=== PATIENT | male | born 1965 | race Caucasian/White ===

== ENCOUNTER 2023-10-12 07:54 | Inpatient (IN) ==
--- NOTE | 2023-10-12 08:07 | Emergency Department Note ---
Impression & Plan Elevated troponin, Chest pain, Acute epigastric pain, Gastroenteritis, History of coronary artery disease ED Provider Note NAME: ENID QUEZADA AGE: 58 SEX: M : 1965 ARRIVES VIA: Ambulance INFORMANT: Patient ED PROVIDER(S): Jaquan Collins MD CHIEF COMPLAINT: chest pain, referred. PLAN: Disposition: Admit MEDICAL DECISION MAKING: The patient is a 58-year-old gentleman, chcf inmate at [facility] with a pmhx of CAD with prior PCI 6 months ago per his report who presents who presents to the emergency department via EMS from his ch[facility] facility referred for acute onset chest pain that began this morning where he received nitroglycerin and aspirin by the [facility] and he reported improvement but then return of the pain which he describes as a burning in his left chest but also feels pain in his right arm. Patient symptoms occur in the setting of having a week of watery brown diarrhea and fevers with vomiting of nausea and vomiting this morning. He denies cough or congestion. On evaluation the patient is no distress, afebrile blood pressure 140s/90s and vital signs otherwise stable. Appears clinically dry. He exhibits mild epigastric discomfort without discrete tenderness. EKG without overt acute ischemia. CXR negative for acute cardiopulmonary process per my personal preliminary review/interpretation. WBC and platelets within normal limits. H/H 12.6/30.4 without recent for comparison. Chemistry without metabolic acidosis. BUN/creatinine is 40, consistent with patient's clinically dry appearance. Electrolytes LFTs without significant abnormality. Initial high-sensitivity troponin 15.5, within normal limits with delta 4-hour high-sensitivity troponin increased to 35. Lipase is not elevated. Respiratory viral panel/[employer] was negative. Stool studies were eventually obtained and were negative. CTA of the chest and CTA of the on pelvis was performed. No acute aortic pathology is identified. Extensive peripheral arterial disease is described with aortoiliac vascular sclerotic plaque with severe multifocal stenosis within bilateral common iliac arteries. Additionally, severe stenosis within the left external iliac and common femoral arteries with a diminutive left superficial femoral artery. Mild dilation of the right common iliac artery is also seen. Likely left renal cyst is also noted. Given the patient's troponin elevation in the setting of history of CAD patient is planned for admission for further evaluation. Given contacts of patient's symptoms gastroenteritis suspect troponin elevation less likely to reflect ACS at this time. Sonya Tirado PAC, with Dr. Davie Hassan [facility] who will evaluate the patient for admission. Further management per admitting team. Triage Nursing notes reviewed and agree them. Prior/external medical records reviewed Vital Signs: reviewed Differential diagnosis: Cardiac ischemia, aortic dissection, pulmonary embolism, pneumothorax, pneumonia, pericarditis, myocarditis, esophageal rupture, GERD, cholecystitis, pancreatitis, musculoskeletal, as well as other pathologies. ER treatment provided: See below. Diagnostics interpreted by me: ECG: Normal sinus rhythm, 64 bpm, no ectopy, no overt ST ovation or depression, QTc 418, QRS 90. Cardiac Monitoring: An order for continuous cardiac monitoring was placed and demonstrated Normal sinus rhythm, 64 bpm, no ectopy. Laboratory studies: See below Imaging studies: See below Consultation(s): Sonya Tirado PAC, with Dr. Davie Hassan [facility] who will evaluate the patient for admission. HPI: The patient is a 58-year-old gentleman, chcf inmate at [facility] with a pmhx of CAD with prior PCI 6 months ago per his report who presents who presents to the emergency department via EMS from his chcf facility referred for acute onset chest pain that began this morning where he received nitroglycerin and aspirin by the [facility] and he reported improvement but then return of the pain which he describes as a burning in his left chest but also feels pain in his right arm. Patient symptoms occur in the setting of having a week of watery brown diarrhea and fevers with vomiting of nausea and vomiting this morning. He denies cough or congestion. ROS: See above HPI for pertinent positives & negatives. A total of 10 systems reviewed and were otherwise negative. VITALS:See Below PHYSICAL EXAMINATION: GENERAL: Awake, alert, in no distress HENT: Normocephalic, atraumatic. Oropharynx with dry mucous membranes and otherwise unremarkable. EYES: Normal conjunctiva. Sclera non-icteric. NECK: Supple. No nuchal rigidity. FROM. No JVD. RESPIRATORY: Clear to auscultation. CARDIAC: Regular rate, normal rhythm. Extremities warm and well perfused. Pulses equal. ABDOMEN: Soft, non-distended. Mild epigastric discomfort without discrete tenderness to palpation. No rebound or guarding. No masses. MUSCULOSKELETAL: Chest examination reveals no tenderness. The back is symmetrical on inspection without obvious abnormality. There is no CVA tenderness to palpation. No joint edema. LOWER EXTREMITIES: Calves are equal size bilaterally and non-tender. No edema. No discoloration. NEURO: Normal sensorium. No sensory or motor deficits noted. SKIN: No rash or jaundice noted. Jaquan Collins MD Past Med/Surg History Problem List (Updated 10/13/23 @ 01:35 by Jaquan Collins MD) History of coronary artery disease (Acute) Gastroenteritis (Acute) Acute epigastric pain (Acute) Chest pain (Acute) Elevated troponin (Acute) Diarrhea Chest pain Medical History C. difficile diarrhea Surgical History History of left below knee amputation H/O heart artery stent Social History Smoking Status: Former smoker Second Hand Exposure: No; Do You Dip or Chew Tobacco: No; Tobacco Cessation Education Requested by Patient: No Hx Alcohol Use: No Hx Substance Use: No Preferred Language: Georgian Communication Ability: Effective Sleeping Room Cleaner Required: No Beliefs That Will Affect Care: None Current Living Situation: Other Current Living Situation Comment: [facility] Other Information That Helps Us Care for You: No Feels Safe at Home: Yes Safety Concerns: Feels Safe At This Time Assistive Devices: Denture - Upper and Prosthesis Allergies Allergies Allergy/AdvReac Type Severity Reaction Status Date / Time animal dander Allergy Unknown Unknown Unverified 10/12/23 12:48 codeine Allergy Unknown Unknown Unverified 10/12/23 12:48 Home Meds Home Medications Medication Instructions Recorded Confirmed albuterol sulfate 90 mcg/actuation 2 puff inhalation QID PRN 10/12/23 10/12/23 aerosol inhaler SOB/WHEEZING aspirin 81 mg tablet,delayed 81 mg PO DAILY 10/12/23 10/12/23 release atorvastatin 80 mg tablet 80 mg PO HS 10/12/23 10/12/23 buprenorphine 8 mg-naloxone 2 mg 1 tab sublingual UD 10/12/23 10/12/23 sublingual tablet cholecalciferol (vitamin D3) 25 50 mcg PO DAILY 10/12/23 10/12/23 mcg (1,000 unit) tablet (Vitamin D3) diclofenac potassium 50 mg tablet 50 mg PO BID PRN Unknown 10/12/23 10/12/23 duloxetine 30 mg capsule,delayed 30 mg PO HS 10/12/23 10/12/23 release duloxetine 60 mg capsule,delayed 60 mg PO HS 10/12/23 10/12/23 release isosorbide mononitrate 30 mg 30 mg PO DAILY 10/12/23 10/12/23 tablet,extended release 24 hr lamotrigine 25 mg tablet 75 mg PO BID 10/12/23 10/12/23 lisinopril 20 mg tablet 20 mg PO DAILY 10/12/23 10/12/23 loperamide 2 mg tablet (Diamode) 4 mg PO DAILY 10/12/23 10/12/23 metoprolol tartrate 25 mg tablet 25 mg PO BID 10/12/23 10/12/23 mirtazapine 30 mg tablet 30 mg PO HS 10/12/23 10/12/23 torsemide 20 mg tablet 20 mg PO BID 10/12/23 10/12/23 Results & Data (ED) Vital Signs Vital Signs - 24 hr 10/12/23 08:05 10/12/23 08:05 10/12/23 08:11 Temperature 36.9 C Temperature Source Oral Pulse Rate 68 63 Pulse Rate [Apical] Respiratory Rate 16 Respiratory Depth Normal Blood Pressure 146/95 H Blood Pressure Mean 112 Pulse Oximetry 96 96 Oxygen Delivery Method Room Air Room Air Oxygen Flow Rate 0 Sepsis Recent Fever Within 48 Hours Yes Sepsis New/Unexplained Change in Mental Status No Sepsis Action Taken by Nursing No Action Required 10/12/23 10:00 10/12/23 11:27 10/12/23 13:00 Temperature Temperature Source Pulse Rate 63 61 Pulse Rate [Apical] 59 L Respiratory Rate 16 20 19 Respiratory Depth Blood Pressure 122/74 116/75 Blood Pressure Mean 90 92 Pulse Oximetry 95 97 95 Oxygen Delivery Method Room Air Room Air Room Air Oxygen Flow Rate Sepsis Recent Fever Within 48 Hours Sepsis New/Unexplained Change in Mental Status Sepsis Action Taken by Nursing 10/12/23 13:02 Temperature Temperature Source Pulse Rate 63 Pulse Rate [Apical] Respiratory Rate Respiratory Depth Blood Pressure Blood Pressure Mean Pulse Oximetry Oxygen Delivery Method Oxygen Flow Rate Sepsis Recent Fever Within 48 Hours Sepsis New/Unexplained Change in Mental Status Sepsis Action Taken by Nursing Laboratory Data Attestation: I reviewed the patient's lab results. 10/12/23 08:00 10/12/23 08:00 Lab Results 10/12/23 10/12/23 Range/Units 08:00 12:24 WBC 6.52 (4.8-10.8) K/ul RBC 4.29 L (4.70-6.10) M/uL Hgb 12.6 L (14.0-18.0) g/dl Hct 38.4 L (42.0-52.0) % MCV 89.5 (80.0-100.0) fL MCH 29.4 (25.0-34.0) pg MCHC 32.8 (32.0-36.0) g/dL RDW Std Deviation 43.0 (36.4-46.3) fL RDW Coeff of Deandre 13.2 (11.5-14.5) % Plt Count 224 (130-400) K/uL MPV 11.1 (9.4-12.4) fL Immature Gran % (Auto) 0.6 % Neut % (Auto) 55.3 % Lymph % (Auto) 35.6 % Dewitt % (Auto) 5.2 % Eos % (Auto) 2.8 % Baso % (Auto) 0.5 % Neut # (Auto) 3.61 (1.40-6.50) K/uL Lymph # (Auto) 2.32 (1.20-3.40) K/uL Dewitt # (Auto) 0.34 (0.11-0.59) K/uL Eos # (Auto) 0.18 (0.00-0.50) K/uL Baso # (Auto) 0.03 (0.00-0.20) K/uL Immature Gran # (Auto) 0.04 (0.01-0.20) K/uL Sodium 140 (136-145) mmol/L Potassium 5.5 H (3.5-5.1) mmol/L Chloride 113 H (98-107) mmol/L Carbon Dioxide 22 (21-32) mmol/L Anion Gap 5 (3-11) BUN 51 H (6-23) mg/dl Creatinine 1.25 (0.6-1.4) mg/dl Est Cr Clr Drug Dosing 68.9 ml/min Est GFR ( Amer) 72.6 ml/min Est GFR (Non-Af Amer) 62.6 ml/min BUN/Creatinine Ratio 40.8 H (10-20) Glucose 108 H (70-99(Fasting)) mg/dl Calcium 9.3 (8.6-10.3) mg/dl Magnesium 2.1 (1.7-2.4) mg/dl Total Bilirubin 0.2 (0.2-1.0) mg/dl AST 14 (13-39) U/L ALT 13 (7-52) U/L Alkaline Phosphatase 99 (34-104) U/L Troponin I High Sens 15.5 35.1 H D (0-20) pg/ml Total Protein 7.9 (6.0-8.3) gm/dl Albumin 4.3 (3.4-5.0) gm/dl Globulin 3.6 (2.5-4.0) gm/dl Albumin/Globulin Ratio 1.2 (0.9-2) Lipase 10 L (11-82) U/L Administered Medications Atorvastatin Calcium (Atorvastatin 40 Mg Tab) 80 mg PO HS LATHA Stop: 11/11/23 20:59 Last Admin: 10/12/23 22:08 Dose: 80 mg Documented By: ADAM Valles Syrup (Valles Syrup 5 Ml Udp) 5 ml PO Q6 LATHA Stop: 10/22/23 17:59 Last Admin: 10/12/23 23:10 Dose: 5 ml Documented By: Admin: 10/12/23 17:56 Dose: 5 ml Documented By: ISIDRO Duloxetine HCl (Duloxetine Hcl 30 Mg Cap) 30 mg PO HS LATHA Stop: 11/11/23 20:59 Last Admin: 10/12/23 22:09 Dose: 30 mg Documented By: ADAM Duloxetine HCl (Duloxetine Hcl 60 Mg Cap) 60 mg PO HS LATHA Stop: 11/11/23 20:59 Last Admin: 10/12/23 22:09 Dose: 60 mg Documented By: ADAM Pantoprazole Sodium 40 mg/ (Syringe) 10 mls @ 5 mls/min IV BID LATHA Stop: 11/11/23 15:19 Last Admin: 10/12/23 22:09 Dose: 5 mls/min Documented By: Admin: 10/12/23 16:26 Dose: 5 mls/min Documented By: ISIDRO Isosorbide Mononitrate (Isosorbide Dewitt Extended Rel 30 Mg Tabcr) 30 mg PO DAILY [facility] Stop: 11/11/23 14:29 Last Admin: 10/12/23 16:26 Dose: 30 mg Documented By: ISIDRO Lamotrigine (Lamotrigine 25 Mg Tab) 75 mg PO BID [facility]; Protocol Stop: 11/11/23 20:59 Last Admin: 10/12/23 22:07 Dose: 75 mg Documented By: ADAM Lisinopril (Lisinopril 20 Mg Tab) 20 mg PO DAILY [facility] Stop: 11/11/23 14:29 Last Admin: 10/12/23 16:26 Dose: 20 mg Documented By: ISIDRO Metoprolol Tartrate (Metoprolol Tartrate 25 Mg Tab) 25 mg PO BID [facility] Stop: 11/11/23 14:29 Last Admin: 10/12/23 22:08 Dose: Not Given Documented By: Admin: 10/12/23 16:26 Dose: 25 mg Documented By: ISIDRO Mirtazapine (Mirtazapine Tab 15 Mg Tab) 30 mg PO HS [facility] Stop: 11/11/23 20:59 Last Admin: 10/12/23 22:06 Dose: 30 mg Documented By: ADAM Nitroglycerin (Nitroglycerin 2% Ointment 30gm Tube) 0.5 inch EXT Q6 [facility] Stop: 11/11/23 14:14 Last Admin: 10/12/23 23:11 Dose: Not Given Documented By: Admin: 10/12/23 17:56 Dose: Not Given Documented By: Admin: 10/12/23 14:39 Dose: 0.5 inch Documented By: ISIDRO Vancomycin HCl (Vancomycin Hcl 125 Mg/2.5ml Soln) 125 mg PO Q6 [facility] Stop: 10/22/23 17:59 Last Admin: 10/12/23 23:10 Dose: 125 mg Documented By: Admin: 10/12/23 17:56 Dose: 125 mg Documented By: ISIDRO Discontinued Medications Al Hydrox/Mg Hydrox/Simethicone (Aluminum/Magnesium Susp 30 Ml Udc) 30 ml PO NOW STA Stop: 10/12/23 09:46 Last Admin: 10/12/23 10:13 Dose: 30 ml Documented By: BRIDGETTE Buprenorphine/Naloxone (Buprenorphine/Naloxone 8/2 Mg Tab) 1 tab SL NOW STA Stop: 10/12/23 14:33 Last Admin: 10/12/23 16:26 Dose: 1 tab Documented By: ISIDRO Sodium Chloride (Nss) 500 mls @ 999 mls/hr IV .Q31M ONE Stop: 10/12/23 08:35 Last Infusion: 10/12/23 11:24 Dose: Infused Documented By: Admin: 10/12/23 08:11 Dose: 999 mls/hr Documented By: BRIDGETTE Acetaminophen (Ofirmev) 1,000 mg in 100 mls @ 400 mls/hr IV NOW STA Stop: 10/12/23 08:45 Last Infusion: 10/12/23 11:24 Dose: Infused Documented By: Admin: 10/12/23 08:52 Dose: 400 mls/hr Documented By: BRIDGETTE Famotidine (Pepcid 20mg Iv Push) 20 mg in 5 mls @ 2.5 mls/min IV NOW STA Stop: 10/12/23 08:32 Last Admin: 10/12/23 08:52 Dose: 2.5 mls/min Documented By: BRIDGETTE Sodium Chloride (Nss) 1,000 mls @ 999 mls/hr IV .Q1H1M LATHA Stop: 10/12/23 14:57 Last Infusion: 10/12/23 15:49 Dose: Infused Documented By: Admin: 10/12/23 14:39 Dose: 999 mls/hr Documented By: ISIDRO Sodium Chloride (Nss) 1,000 mls @ 125 mls/hr IV .Q8H LATHA Stop: 10/12/23 23:29 Last Infusion: 10/12/23 20:20 Dose: Infused Documented By: Admin: 10/12/23 16:27 Dose: 125 mls/hr Documented By: ISIDRO Sodium Chloride (Nss) 500 mls @ 999 mls/hr IV .Q31M ONE Stop: 10/12/23 20:17 Last Infusion: 10/12/23 20:19 Dose: Infused Documented By: Admin: 10/12/23 19:53 Dose: 999 mls/hr Documented By: MELANIE Ioversol (Optiray 320 100ml) 120 ml IV ONCE ONE Stop: 10/12/23 09:06 Last Admin: 10/12/23 08:57 Dose: 120 ml Documented By: LEWIS Ondansetron HCl (Ondansetron Inj 2 Mg/Ml 2 Ml Vial) 4 mg IV NOW STA Stop: 10/12/23 08:32 Last Admin: 10/12/23 08:52 Dose: 4 mg Documented By: KV Imaging Data Radiologist's Impression: Chest X-Ray 10/12/23 08:02 XR chest 1V portable CLINICAL HISTORY: Chest pain, nonspecific COMPARISON STUDY: No previous studies for comparison. FINDINGS: Lung volumes are mildly diminished. There is no pneumothorax or pleural effusion. There is no consolidation. Pulmonary vascular congestion without overt pulmonary edema. Cardiomediastinal silhouette is unremarkable. IMPRESSION: Pulmonary vascular congestion without overt pulmonary edema. ACT 112: Negative or not required by law. Electronically signed by: Goyo Fontaine M.D. 10/12/2023 9:00 AM Abdomen/Pelvis CTA 10/12/23 08:31 CT angio abdomen pelvis w con CLINICAL HISTORY: Chest and abdominal pain. Hypertension. COMPARISON STUDY: No previous studies for comparison. TECHNIQUE: Helical axial images of the abdomen and pelvis were obtained during arterial phase following intravenous injection of 120 cc Optiray 320 IV. Sagittal and coronal reconstructions were viewed as well as maximal intensity projections on an independent 3-D workstation. Automated exposure control was utilized for the study. A dose lowering technique was utilized adhering to the principles of ALARA. FINDINGS: Please note that the chest CT will be reported separately. Emphysema is incidentally noted within the lower lungs. No pneumatosis, free air or portal venous gas is present. The caliber of the abdominal aorta is normal. There is extensive aortoiliac atherosclerotic plaque. The celiac axis, superior mesenteric artery, inferior mesenteric artery and renal arteries are patent. There is no dissection within the abdomen or pelvis. Severe multifocal stenoses within the right common iliac artery are present. There is focal mild dilatation of the right common iliac artery, measuring 1.4 cm. There is mild stenosis within the right external iliac artery. Severe multifocal stenoses within the left common iliac artery are due to extensive calcified and noncalcified plaque. Severe multifocal stenoses within the left external iliac and common femoral arteries are noted. The proximal left superficial femoral artery is diminutive. Liver morphology is normal. There is no biliary or pancreatic ductal dilatation. A 9 mm hypervascular segment 7 hepatic lesion is probably benign. Spleen, adrenal glands and pancreas are unremarkable. The appendix is normal. There is no evidence for a bowel obstruction. Colonic diverticulosis is present without evidence for acute diverticulitis. The bladder is distended. There is no lymphadenopathy. There are no fluid collections. Left femoral internal fixation is noted. Chronic deformity left iliac bone. A 8 mm hypodense lesion arising from the lower pole of the left kidney on image 145 of 389 measures just above water attenuation. IMPRESSION: 1. No abdominal aortic dissection. Extensive aortoiliac atherosclerotic plaque. Severe multifocal stenoses within the bilateral common iliac arteries. In addition, severe stenoses within the left external iliac and common femoral arteries with a diminutive left superficial femoral artery. Mild dilatation of the right common iliac artery. 2. No acute process within the abdomen or pelvis. 3. No bowel obstruction. No bowel wall thickening. Normal appendix. 4. 8 mm left lower pole renal lesion. This probably reflects a cyst however measures above water attenuation. Nonemergent renal ultrasound is recommended to exclude the possibility of a small solid renal lesion. ACT 112: Positive. There are findings on this exam that require communication between the performing entity and the patient following Patient Test Result Information Act ([place] Act 112) guidelines. Electronically signed by: Goyo Fontaine M.D. 10/12/2023 9:31 AM Chest CTA 10/12/23 08:31 CT angio chest dissec wo/w con CLINICAL HISTORY: cp/abd pain, HTN, RUE numbness TECHNIQUE: Multidetector row helical CT of the chest was performed before and after injection of IV contrast. Coronal, sagittal, and MIP reformations were obtained. Automated dose lowering techniques and/or adjustment according to patient size were utilized for this exam. Comparison: Comparison is made to chest radiograph 10/12/2023 FINDINGS: Lungs and pleura: Normal. Heart and pericardium: Aortic valvular calcifications are seen. Vessels: No aortic dissection or intramural hematoma is seen. Moderate atherosclerotic disease is seen in the aorta and coronary arteries. Mediastinum and ekaterina: Unremarkable. Chest wall and lower neck: Unremarkable. Abdomen: Unremarkable. Bones: Degenerative changes in the thoracic spine. IMPRESSION: No acute abnormality and in particular no evidence of acute aortic injury. ACT 112: Negative or not required by law. Electronically signed by: Alexander Valles M.D. 10/12/2023 10:01 AM Discharge Plan Visit Data Chief Complaint: Chest Pain ED Provider: Jaquan Collins Discharge Problem: Elevated troponin, Chest pain, Acute epigastric pain, Gastroenteritis, History of coronary artery disease Patient Disposition: Admitted As Inpatient Discharge Instructions Interventions: ED Discharge Assessment Last Done: 10/12/23 19:04 Discharge Problem: Chest pain Qualifiers: Chest pain type: unspecified Qualified Code(s): R07.9 - Chest pain, unspecified
[2023-10-12] MEDS: SODIUM CHLORIDE 0.9% 500 ML IV ONE ×2 (08:11→19:53)
[2023-10-12 08:24] LABS: Basophils # (auto) 0.03 K/uL (0.00-0.20); Basophils % (auto) 0.5 %; Eosinophils # (auto) 0.18 K/uL (0.00-0.50); Eosinophils % (auto) 2.8 %; Hematocrit (blood only) 38.4 % (42.0-52.0); Hemoglobin 12.6 g/dl (14.0-18.0); Immature Granulocytes # (auto) 0.04 K/uL (0.01-0.20); Immature Granulocytes % (auto) 0.6 %; Lymphocytes # (auto) 2.32 K/uL (1.20-3.40); Lymphocytes % (auto) 35.6 %; Mean Corpuscular Hemoglobin 29.4 pg (25.0-34.0); Mean Corpuscular Hgb Conc 32.8 g/dL (32.0-36.0); Mean Corpuscular Volume 89.5 fL (80.0-100.0); Mean Platelet Volume 11.1 fL (9.4-12.4); Monocytes # (auto) 0.34 K/uL (0.11-0.59); Monocytes % (auto) 5.2 %; Neutrophils # (auto) 3.61 K/uL (1.40-6.50); Neutrophils % (auto) 55.3 %; Platelet Count 224 K/uL (130-400); RDW Coefficient of Variation 13.2 % (11.5-14.5); Red Blood Count 4.29 M/uL (4.70-6.10); White Blood Count 6.52 K/ul (4.8-10.8)
[2023-10-12 08:44] LABS: Albumin Globulin Ratio 1.2 (0.9-2); Albumin Level 4.3 gm/dl (3.4-5.0); BUN Creatinine Ratio 40.8 (10-20); Bilirubin,Total 0.2 mg/dl (0.2-1.0); Calcium 9.3 mg/dl (8.6-10.3); Creatinine Clr Calc Pharmacy 68.9 ml/min; Est GFR (African American) 72.6 ml/min; Est GFR (Non-African American) 62.6 ml/min; Globulin 3.6 gm/dl (2.5-4.0); Magnesium 2.1 mg/dl (1.7-2.4); Potassium 5.5 mmol/L (3.5-5.1); Total Protein 7.9 gm/dl (6.0-8.3)
[2023-10-12 08:49] LABS: Troponin I High Sensitivity 15.5 pg/ml (0-20)
[2023-10-12] MEDS: ACETAMINOPHEN 1,000 MG/100 ML VIAL IV STA (08:52)
[2023-10-12] MEDS: ONDANSETRON INJ 2 MG/ML 2 ML VIAL IV STA (08:52)
[2023-10-12] MEDS: FAMOTIDINE 20MG IV PUSH 20 MG/5 ML SYR IV STA (08:52)
[2023-10-12] MEDS: OPTIRAY 320 100ml IV ONE (08:57)
--- NOTE | 2023-10-12 09:01 | XRay Report ---
XR chest 1V portable CLINICAL HISTORY: Chest pain, nonspecific COMPARISON STUDY: No previous studies for comparison. FINDINGS: Lung volumes are mildly diminished. There is no pneumothorax or pleural effusion. There is no consolidation. Pulmonary vascular congestion without overt pulmonary edema. Cardiomediastinal silh ouette is unremarkable. IMPRESSION: Pulmonary vascular congestion without overt pulmonary edema. ACT 112: Negative or not required by law. Electronically signed by: Goyo Fontaine M.D. 10/12/2023 9:00 AM
--- NOTE | 2023-10-12 09:33 | CT Scan Report ---
CT angio abdomen pelvis w con CLINICAL HISTORY: Chest and abdominal pain. Hypertension. COMPARISON STUDY: No previous studies for comparison. TECHNIQUE: Helical axial images of the abdomen and pelvis were obtained during arterial phase followi ng intravenous injection of 120 cc Optiray 320 IV. Sagittal and coronal reconstructions were viewed a s well as maximal intensity projections on an independent 3-D workstation. Automated exposure control was utilized for the study. A dose lowering technique was utilized adhering to the principles of AL MONA. FINDINGS: Please note that the chest CT will be reported separately. Emphysema is incidentally noted within the lower lungs. No pneumatosis, free air or portal venous gas is present. The caliber of the abdominal aorta is normal. There is extensive aortoiliac atherosclerotic plaque. The celiac axis, sup erior mesenteric artery, inferior mesenteric artery and renal arteries are patent. There is no dissec tion within the abdomen or pelvis. Severe multifocal stenoses within the right common iliac artery ar e present. There is focal mild dilatation of the right common iliac artery, measuring 1.4 cm. There i s mild stenosis within the right external iliac artery. Severe multifocal stenoses within the left co mmon iliac artery are due to extensive calcified and noncalcified plaque. Severe multifocal stenoses within the left external iliac and common femoral arteries are noted. The proximal left superficial f emoral artery is diminutive. Liver morphology is normal. There is no biliary or pancreatic ductal dilatation. A 9 mm hypervascular segment 7 hepatic lesion is probably benign. Spleen, adrenal glands and pancreas are unremarkable. T he appendix is normal. There is no evidence for a bowel obstruction. Colonic diverticulosis is presen t without evidence for acute diverticulitis. The bladder is distended. There is no lymphadenopathy. T here are no fluid collections. Left femoral internal fixation is noted. Chronic deformity left iliac bone. A 8 mm hypodense lesion arising from the lower pole of the left kidney on image 145 of 389 elayne ures just above water attenuation. IMPRESSION: 1. No abdominal aortic dissection. Extensive aortoiliac atherosclerotic plaque. Severe multifocal marques noses within the bilateral common iliac arteries. In addition, severe stenoses within the left pharmacy aide al iliac and common femoral arteries with a diminutive left superficial femoral artery. Mild dilatati on of the right common iliac artery. 2. No acute process within the abdomen or pelvis. 3. No bowel obstruction. No bowel wall thickening. Normal appendix. 4. 8 mm left lower pole renal lesion. This probably reflects a cyst however measures above water atte nuation. Nonemergent renal ultrasound is recommended to exclude the possibility of a small solid sirena l lesion. ACT 112: Positive. There are findings on this exam that require communication between the performing entity and the patient following Patient Test Result Information Act ([place] Act 112) guidelines. Electronically signed by: Goyo Fontaine M.D. 10/12/2023 9:31 AM
--- NOTE | 2023-10-12 10:03 | CT Scan Report ---
CT angio chest dissec wo/w con CLINICAL HISTORY: cp/abd pain, HTN, RUE numbness TECHNIQUE: Multidetector row helical CT of the chest was performed before and after injection of IV c ontrast. Coronal, sagittal, and MIP reformations were obtained. Automated dose lowering techniques an d/or adjustment according to patient size were utilized for this exam. Comparison: Comparison is made to chest radiograph 10/12/2023 FINDINGS: Lungs and pleura: Normal. Heart and pericardium: Aortic valvular calcifications are seen. Vessels: No aortic dissection or intramural hematoma is seen. Moderate atherosclerotic disease is see n in the aorta and coronary arteries. Mediastinum and ekaterina: Unremarkable. Chest wall and lower neck: Unremarkable. Abdomen: Unremarkable. Bones: Degenerative changes in the thoracic spine. IMPRESSION: No acute abnormality and in particular no evidence of acute aortic injury. ACT 112: Negative or not required by law. Electronically signed by: Alexander Valles M.D. 10/12/2023 10:01 AM
[2023-10-12] MEDS: ALUMINUM/MAGNESIUM SUSP 30 ML UDC PO STA (10:13)
[2023-10-12 11:08] LABS: Adenovirus PCR Not Detected (NotDetected); Bordetella parapertussis PCR Not Detected (NotDetected); Bordetella pertussis PCR Not Detected (NotDetected); Chlamydia pneumoniae PCR Not Detected (NotDetected); Coronavirus 229E PCR Not Detected (NotDetected); Coronavirus CoV-2 (COVID19)PCR Not Detected (NotDetected); Coronavirus HKU1 PCR Not Detected (NotDetected); Coronavirus NL63 PCR Not Detected (NotDetected); Coronavirus OC43PCR Not Detected (NotDetected); Human Metapneumovirus PCR Not Detected (NotDetected); Influenza A PCR Not Detected (NotDetected); Influenza B PCR Not Detected (NotDetected); Mycoplasma pneumoniae PCR Not Detected (NotDetected); Parainfluenza Virus 1 PCR Not Detected (NotDetected); Parainfluenza Virus 2 PCR Not Detected (NotDetected); Parainfluenza Virus 3 PCR Not Detected (NotDetected); Parainfluenza Virus 4 PCR Not Detected (NotDetected); Respiratory Syncytial VirusPCR Not Detected (NotDetected); Rhinovirus/Enterovirus PCR Not Detected (NotDetected)
--- NOTE | 2023-10-12 11:38 | Electrocardiogram Report ---
Test Reason : Blood Pressure : / mmHG Vent. Rate : 064 BPM Atrial Rate : 064 BPM P-R Int : 188 ms QRS Dur : 090 ms QT Int : 406 ms P-R-T Axes : 031 016 010 degrees QTc Int : 418 ms Normal sinus rhythm Possible Old Inferior infarct Abnormal ECG No previous ECGs available Confirmed by Zach Bone ([id number]) on 10/12/2023 11:38:01 AM Referred By: Stew WAN Confirmed By:Zach Bone
--- NOTE | 2023-10-12 11:42 | Electrocardiogram Report ---
Test Reason : Blood Pressure : / mmHG Vent. Rate : 060 BPM Atrial Rate : 060 BPM P-R Int : 164 ms QRS Dur : 096 ms QT Int : 422 ms P-R-T Axes : 048 023 015 degrees QTc Int : 422 ms Normal sinus rhythm Old Inferior infarct (cited on or before 12-OCT-2023) Abnormal ECG When compared with ECG of 12-OCT-2023 08:02, No significant change was found Confirmed by Zach Bone ([id number]) on 10/12/2023 11:42:08 AM Referred By: Stew WAN Confirmed By:Zach Bone
--- NOTE | 2023-10-12 14:09 | History & Physical Report ---
Date of Service October 12, 2023 Assessment & Plan (1) Chest pain: (2) H/O heart artery stent: Plan: - Admit to tele for observation for r/o - Trend cardiac biomarkers, initial set was negative, second is 35, retrend at 4 pm - if elevates then will need heparin gtt for anticoagulation - Nitropaste ordered - EKG reviewed as above, no ST wave inversions or signs of ischemia. Repeating x 1 more. - Check 2 D echo - If negative enzymes can consider a stress test tomorrow morning. - Consult cardiology - PT/OT consulted - Missed am meds including lisionpril, metoprolol, imdur today - will administer now - Hold torsemide 20 mg BID for now until obtain ECHO, also holding further fluids with needs for volume assessment. He appears euvolemic to dry clinically. (3) Diarrhea: (4) C. difficile diarrhea: Plan: - Will start po Vanc with hx of such - C. diff stool cultures pending - Contact precautions for now, can dc if negative - Add 1 more bag of NSS for now, holding torsemide with the amount of diarrhea the pt reports. (5) History of left below knee amputation: Plan: - Hx of such, stump is intact, no infection. DVT ppx: teds, scds Lines: PIV x 1 FEN/GI: Allow clears CODE: Full code Dispo: From home, likely to remain in the hospital x 1-2 days A total of 75 minutes were spent with greater than 50% of that time face to face with the patient, personally reviewing all current laboratories, imaging studies, past medication reconciliation, outpatient chart review, and discussion with specialists to collaborate care for the patient with attending. Please see attending documentation for corrections and/or additions. Plan Attending Addendum: care coordinated with MIREYA Pop please refer to her notes for full details, I agree with her notes patient seen and examined, records reviewed by myself as well on exam, patient seen resting in bed, not in distress still complaining of left sided chest pain- localized with 2 fingers- "sharp, tight" no other symptoms VS noted and reviewed oriented x 3, not in distress, speaks in sentences with no effort nor accessory muscle use normal rate, regular rhythm, no murmurs clear breath sounds bilaterally non distended, soft, nontender no bipedal edema, erythema, warmth no neuro deficits all labs noted and reviewed ASSESSMENT AND PLAN CHEST PAIN R/O ACS HISTORY OF CAD, STENT PLACEMENT check 3rd troponin 3rd EKG no signs of acute ischemia Cardiology consulted DIARRHEA HISTORY OF C DIFF check stool panel, C diff empirically placed on Vanco PO until results are back other diagnoses and plan of care as per MIREYA Mcbride's notes Ryland Broderick MD History of Present Illness Chief Complaint: Chest pain Primary Care Provider: SAVAGE Stew This is a 58-year-old male who is from [facility], recently transferred here about 1.5 months ago from the [facility] system. He reports having cardiac stent placed at that facility approximately 6 months ago with a accompanying pleural effusion and NSTEMI, where he was hospitalized for 3 weeks. He previously has followed with a Dr. Quintero with cardiology. Pt has not seen him in the past 6 months however. He states that within the past 8 days patient has had nausea and diarrhea, generalized weakness and states he has not been up out of bed more than to get into the pill line and try some food in the past 48 hours. Patient states that as soon as he eats it seems to run right through him. Admits to having history of C. difficile and states that the stool smells foul and reminds him of similar infection. He denies any recent antibiotic use. He admits to having some dizziness today and feels somewhat short of breath with minimal exertional activities. Pt also felt feverish overnight with sweats, denies chills. He was administered a full dose aspirin and dose of nitroglycerin in EMS on the way here, states that he had improvement of his chest pain for approximately 30 minutes. It has since returned. States that it is a constant sharp type pain is nonradiating. He is slightly dizzy with sitting up in bed for exam purposes. 1 year ago sustained a fall due to using crutches and having left BKA prosthesis off, fell causing right femur fracture requiring nailing and fixation. He also sustained a left trigger finger injury, left shoulder injury and left elbow injury. Patient was placed on Suboxone tablet after this surgical fixation, per his report was all that the facility had, he denies any previous history of drug use, IV drug abuse, illicit drug use. He has smoked marijuana in the past but has not in the past 3 years, previously had medical marijuana card. Previously smoked cigarettes one third of a pack for 20 years on and off, quit 3 years ago. He denies any alcohol use. Family history: Mom: Cervical cancer, Dad: Alcoholism, Brother: Alive, no known medical history Surgical history: Cardiac Stent x 1 in 2022, location unknown Left BKA amputation 1999 Right femur fixation 2019 Allergies Allergy/AdvReac Type Severity Reaction Status Date / Time animal dander Allergy Unknown Unknown Unverified 10/12/23 12:48 codeine Allergy Unknown Unknown Unverified 10/12/23 12:48 Home Medications Medication Instructions Recorded Confirmed Type albuterol sulfate 90 mcg/actuation 2 puff inhalation QID PRN 10/12/23 10/12/23 History aerosol inhaler SOB/WHEEZING aspirin 81 mg tablet,delayed 81 mg PO DAILY 10/12/23 10/12/23 History release atorvastatin 80 mg tablet 80 mg PO HS 10/12/23 10/12/23 History buprenorphine 8 mg-naloxone 2 mg 1 tab sublingual UD 10/12/23 10/12/23 History sublingual tablet cholecalciferol (vitamin D3) 25 50 mcg PO DAILY 10/12/23 10/12/23 History mcg (1,000 unit) tablet (Vitamin D3) diclofenac potassium 50 mg tablet 50 mg PO BID PRN Unknown 10/12/23 10/12/23 History duloxetine 30 mg capsule,delayed 30 mg PO HS 10/12/23 10/12/23 History release duloxetine 60 mg capsule,delayed 60 mg PO HS 10/12/23 10/12/23 History release isosorbide mononitrate 30 mg 30 mg PO DAILY 10/12/23 10/12/23 History tablet,extended release 24 hr lamotrigine 25 mg tablet 75 mg PO BID 10/12/23 10/12/23 History lisinopril 20 mg tablet 20 mg PO DAILY 10/12/23 10/12/23 History loperamide 2 mg tablet (Diamode) 4 mg PO DAILY 10/12/23 10/12/23 History metoprolol tartrate 25 mg tablet 25 mg PO BID 10/12/23 10/12/23 History mirtazapine 30 mg tablet 30 mg PO HS 10/12/23 10/12/23 History torsemide 20 mg tablet 20 mg PO BID 10/12/23 10/12/23 History Past Med/Surg History Problem List Chest pain (Acute) Elevated troponin (Acute) Diarrhea Chest pain Medical History C. difficile diarrhea Surgical History History of left below knee amputation H/O heart artery stent Social History Smoking Status: Former smoker Review of Systems Review of Systems: Constitutional: + fever, + weakness, no sweats or chills Eyes: No diplopia, no worsening or blurred vision ENT: normal hearing, no trouble swallowing Respiratory: No cough, sputum, dyspnea at rest, + LEMONS Cardiovascular: As per HPI Abdomen: minimal pain, +nausea, no vomiting, + diarrhea , no constipation Musculoskeletal: Left BKA, No joint pain, calf pain, swelling Neurologic: + generalized weakness, no numbness/tingling, Left lower leg prosthesis, no balance problems Psychiatric: No anxiety or depression Skin: No rash or itch Physical Exam Physical Exam: General: awake, alert, no apparent distress, generalized weakness Head: Normocephalic, atraumatic ENT: PERRL, EOMI, no pharyngeal exudate, mucous membranes slightly dry Chest: Clear to auscultation, on room air, no adventitious breath sounds Cardiac: Regular rate and rhythm, no murmur, no JVD, normal peripheral pulses, good capillary refill Abdominal: NABS x 4 quadrants, soft, nondistended, LLQ is tender to palpation, no rebound or guarding Extremities: Normal inspection, Left BKA, stump is intact and well healed, no peripheral edema or erythema, calfs nontender to palpation Psych: Normal mood and affect Neuro: AAO x 3, strength intact bilaterally and rated 5/5, no motor deficits, speech is clear, no peripheral sensory deficits Results & Data Results & Data Vital Signs (Past 12 Hours) Vital Signs Temp Pulse Pulse Resp BP Pulse Ox O2 Del Method 10/12/23 13:02 63 10/12/23 13:00 61 19 116/75 95 Room Air 10/12/23 11:27 63 20 122/74 97 Room Air 10/12/23 10:00 59 L 16 95 Room Air 10/12/23 08:11 63 10/12/23 08:05 96 Room Air 10/12/23 08:05 36.9 C 68 16 146/95 H 96 Room Air O2 Flow Rate 10/12/23 13:02 10/12/23 13:00 10/12/23 11:27 10/12/23 10:00 10/12/23 08:11 10/12/23 08:05 0 10/12/23 08:05 Laboratory Results 10/12/23 10/12/23 10/12/23 Unknown 12:24 08:00 WBC 6.52 RBC 4.29 L Hgb 12.6 L Hct 38.4 L MCV 89.5 MCH 29.4 MCHC 32.8 RDW Std Deviation 43.0 RDW Coeff of Deandre 13.2 Plt Count 224 MPV 11.1 Immature Gran % (Auto) 0.6 Neut % (Auto) 55.3 Lymph % (Auto) 35.6 [place] % (Auto) 5.2 Eos % (Auto) 2.8 Baso % (Auto) 0.5 Neut # (Auto) 3.61 Lymph # (Auto) 2.32 [place] # (Auto) 0.34 Eos # (Auto) 0.18 Baso # (Auto) 0.03 Immature Gran # (Auto) 0.04 Sodium 140 Potassium 5.5 H Chloride 113 H Carbon Dioxide 22 Anion Gap 5 BUN 51 H Creatinine 1.25 Est Cr Clr Drug Dosing 68.9 Est GFR ( Amer) 72.6 Est GFR (Non-Af Amer) 62.6 BUN/Creatinine Ratio 40.8 H Glucose 108 H Calcium 9.3 Magnesium 2.1 Total Bilirubin 0.2 AST 14 ALT 13 Alkaline Phosphatase 99 Troponin I High Sens 35.1 H D 15.5 Total Protein 7.9 Albumin 4.3 Globulin 3.6 Albumin/Globulin Ratio 1.2 Lipase 10 L Adenovirus (PCR) Not Detected B. pertussis DNA (PCR) Not Detected B.parapertussis DNA PCR Not Detected C. pneumoniae DNA (PCR) Not Detected Coronavirus OC43 (PCR) Not Detected Coronavirus HKU1 (PCR) Not Detected Coronavirus 229E (PCR) Not Detected SARS-CoV-2 (PCR) Not Detected Coronavirus NL63 (PCR) Not Detected Human Metapneumovir PCR Not Detected Influenza Type A (PCR) Not Detected Influenza Type B (PCR) Not Detected M. pneumoniae (PCR) Not Detected Parainfluenza 1 (PCR) Not Detected Parainfluenza 2 (PCR) Not Detected Parainfluenza 3 (PCR) Not Detected Parainfluenza 4 (PCR) Not Detected RSV (PCR) Not Detected Entero/Rhino (PCR) Not Detected Diagnostic Findings Chest X-Ray 10/12/23 08:02 XR chest 1V portable CLINICAL HISTORY: Chest pain, nonspecific COMPARISON STUDY: No previous studies for comparison. FINDINGS: Lung volumes are mildly diminished. There is no pneumothorax or pleural effusion. There is no consolidation. Pulmonary vascular congestion without overt pulmonary edema. Cardiomediastinal silhouette is unremarkable. IMPRESSION: Pulmonary vascular congestion without overt pulmonary edema. ACT 112: Negative or not required by law. Electronically signed by: Goyo Fontaine M.D. 10/12/2023 9:00 AM Abdomen/Pelvis CTA 10/12/23 08:31 CT angio abdomen pelvis w con CLINICAL HISTORY: Chest and abdominal pain. Hypertension. COMPARISON STUDY: No previous studies for comparison. TECHNIQUE: Helical axial images of the abdomen and pelvis were obtained during arterial phase following intravenous injection of 120 cc Optiray 320 IV. Sagittal and coronal reconstructions were viewed as well as maximal intensity projections on an independent 3-D workstation. Automated exposure control was utilized for the study. A dose lowering technique was utilized adhering to the principles of ALARA. FINDINGS: Please note that the chest CT will be reported separately. Emphysema is incidentally noted within the lower lungs. No pneumatosis, free air or portal venous gas is present. The caliber of the abdominal aorta is normal. There is extensive aortoiliac atherosclerotic plaque. The celiac axis, superior mesenteric artery, inferior mesenteric artery and renal arteries are patent. There is no dissection within the abdomen or pelvis. Severe multifocal stenoses within the right common iliac artery are present. There is focal mild dilatation of the right common iliac artery, measuring 1.4 cm. There is mild stenosis within the right external iliac artery. Severe multifocal stenoses within the left common iliac artery are due to extensive calcified and noncalcified plaque. Severe multifocal stenoses within the left external iliac and common femoral arteries are noted. The proximal left superficial femoral artery is diminutive. Liver morphology is normal. There is no biliary or pancreatic ductal dilatation. A 9 mm hypervascular segment 7 hepatic lesion is probably benign. Spleen, adrenal glands and pancreas are unremarkable. The appendix is normal. There is no evidence for a bowel obstruction. Colonic diverticulosis is present without evidence for acute diverticulitis. The bladder is distended. There is no lymphadenopathy. There are no fluid collections. Left femoral internal fixation is noted. Chronic deformity left iliac bone. A 8 mm hypodense lesion arising from the lower pole of the left kidney on image 145 of 389 measures just above water attenuation. IMPRESSION: 1. No abdominal aortic dissection. Extensive aortoiliac atherosclerotic plaque. Severe multifocal stenoses within the bilateral common iliac arteries. In addition, severe stenoses within the left external iliac and common femoral arteries with a diminutive left superficial femoral artery. Mild dilatation of the right common iliac artery. 2. No acute process within the abdomen or pelvis. 3. No bowel obstruction. No bowel wall thickening. Normal appendix. 4. 8 mm left lower pole renal lesion. This probably reflects a cyst however measures above water attenuation. Nonemergent renal ultrasound is recommended to exclude the possibility of a small solid renal lesion. ACT 112: Positive. There are findings on this exam that require communication between the performing entity and the patient following Patient Test Result Information Act ([place] Act 112) guidelines. Electronically signed by: Goyo Fontaine M.D. 10/12/2023 9:31 AM Chest CTA 10/12/23 08:31 CT angio chest dissec wo/w con CLINICAL HISTORY: cp/abd pain, HTN, RUE numbness TECHNIQUE: Multidetector row helical CT of the chest was performed before and after injection of IV contrast. Coronal, sagittal, and MIP reformations were obt ained. Automated dose lowering techniques and/or adjustment according to patient size were utilized for this exam. Comparison: Comparison is made to chest radiograph 10/12/2023 FINDINGS: Lungs and pleura: Normal. Heart and pericardium: Aortic valvular calcifications are seen. Vessels: No aortic dissection or intramural hematoma is seen. Moderate atherosclerotic disease is seen in the aorta and coronary arteries. Mediastinum and ekaterina: Unremarkable. Chest wall and lower neck: Unremarkable. Abdomen: Unremarkable. Bones: Degenerative changes in the thoracic spine. IMPRESSION: No acute abnormality and in particular no evidence of acute aortic injury. ACT 112: Negative or not required by law. Electronically signed by: Alexander Valles M.D. 10/12/2023 10:01 AM ECG Additional Comments: Reviewed two previous EKGs from this morning without specific indication of ischemia, will repeat one more time with chest pain. Code Status & VTE Plan Code Status Full code VTE Prophylaxis Plan VTE Prophylaxis will be ordered: Yes
[2023-10-12] MEDS: SODIUM CHLORIDE 0.9% 1,000 ML IV SCH ×2 (14:39→16:27)
[2023-10-12] MEDS: NITROGLYCERIN 2% OINTMENT 30GM TUBE EXT SCH (14:39)
--- NOTE | 2023-10-12 15:10 | Cardiology Consultation ---
Date of Consultation October 12, 2023 Assessment & Plan (1) Elevated troponin: (2) Chest pain: (3) Diarrhea: Plan 58-year-old male presents with symptoms of chest pain superimposed on 8 days of severe diarrhea malaise and low-grade fevers and chills Prior history of known coronary disease with prior coronary invention, patient noting nonrevascularized vessel due to collateral fill No ischemic evolution on EKG Mild elevation in troponin on second test Agree with current plan as outlined resume cardiac medications holding diuretic Echocardiogram assess LV function If troponin increases further consider IV anticoagulation with heparin Patient at risk for demand ischemia given nonrevascularizable vessel, acute illness Cardiology will follow Please request records from [facility] History of Present Illness Reason for Consultation: Chest pain, malaise, history of coronary disease Requesting Physician: Dr. Broderick History of Present Illness Patient is a 58-year-old male currently incarcerated at [facility] who presented to the emergency room several symptoms including sharp left chest pain and left epigastric discomfort. Notes preceding symptoms of malaise x 2 to 3 days including 8 days of diarrhea loose stools, low-grade fevers Patient carries a history of prior coronary artery disease and underwent prior coronary stenting. Denies myocardial infarction. Notes 2 vessels involved 1 receiving stents second not revascularized due to collateral fill. No history rheumatic fever scarlet fever No peripheral vascular Did not have medications this morning but otherwise on guideline directed medical regimen Currently denies headache or visual changes orthopnea worsening peripheral edema Torsemide on hold due to persistent diarrhea. "Everything I eat goes through me" prior history of C. difficile diarrhea Current EKGs without acute ischemic changes no evolution over serial testing Troponin mildly elevated on second testing Allergies Allergy/AdvReac Type Severity Reaction Status Date / Time animal dander Allergy Unknown Unknown Unverified 10/12/23 12:48 codeine Allergy Unknown Unknown Unverified 10/12/23 12:48 Home Medications Medication Instructions Recorded Confirmed Type albuterol sulfate 90 mcg/actuation 2 puff inhalation QID PRN 10/12/23 10/12/23 History aerosol inhaler SOB/WHEEZING aspirin 81 mg tablet,delayed 81 mg PO DAILY 10/12/23 10/12/23 History release atorvastatin 80 mg tablet 80 mg PO HS 10/12/23 10/12/23 History buprenorphine 8 mg-naloxone 2 mg 1 tab sublingual UD 10/12/23 10/12/23 History sublingual tablet cholecalciferol (vitamin D3) 25 50 mcg PO DAILY 10/12/23 10/12/23 History mcg (1,000 unit) tablet (Vitamin D3) diclofenac potassium 50 mg tablet 50 mg PO BID PRN Unknown 10/12/23 10/12/23 History duloxetine 30 mg capsule,delayed 30 mg PO HS 10/12/23 10/12/23 History release duloxetine 60 mg capsule,delayed 60 mg PO HS 10/12/23 10/12/23 History release isosorbide mononitrate 30 mg 30 mg PO DAILY 10/12/23 10/12/23 History tablet,extended release 24 hr lamotrigine 25 mg tablet 75 mg PO DAILY 10/12/23 10/12/23 History lisinopril 20 mg tablet 20 mg PO DAILY 10/12/23 10/12/23 History loperamide 2 mg tablet (Diamode) 4 mg PO DAILY 10/12/23 10/12/23 History metoprolol tartrate 25 mg tablet 25 mg PO BID 10/12/23 10/12/23 History mirtazapine 30 mg tablet 30 mg PO HS 10/12/23 10/12/23 History torsemide 20 mg tablet 20 mg PO BID 10/12/23 10/12/23 History Patient History Medical History C. difficile diarrhea Surgical History History of left below knee amputation H/O heart artery stent Social History Smoking Status: Former smoker Review of Systems Review of Systems: All systems reviewed & are unremarkable except as noted in HPI & below Physical Exam Constitutional: + ill appearing Eyes: PERRL, conjunctivae normal, anicteric sclerae ENMT: external ear and nose normal, oropharynx normal Neck: trachea midline, no thyromegaly Respiratory: normal respiratory effort, lungs clear to auscultation Cardiovascular: RRR, no murmur, no edema Heart Sounds: normal S1 and normal S2 Vessels: no JVD Extremities: no edema Gastrointestinal (Abdomen): Percussion/Palpation: + abdomen tender (Left lower quadrant) and abdomen soft Musculoskeletal: no cyanosis or clubbing, extremities motor strength 5/5 Left BKA posttrauma Skin: no rashes, warm and dry Results & Data Vital Signs (Past 12 Hours) Vital Signs Temp Pulse Pulse Resp BP Pulse Ox O2 Del Method 10/12/23 13:02 63 10/12/23 13:00 61 19 116/75 95 Room Air 10/12/23 11:27 63 20 122/74 97 Room Air 10/12/23 10:00 59 L 16 95 Room Air 10/12/23 08:11 63 10/12/23 08:05 96 Room Air 10/12/23 08:05 36.9 C 68 16 146/95 H 96 Room Air O2 Flow Rate 10/12/23 13:02 10/12/23 13:00 10/12/23 11:27 10/12/23 10:00 10/12/23 08:11 10/12/23 08:05 0 10/12/23 08:05 Laboratory Results Laboratory Results - last 24 hr 10/12/23 10/12/23 10/12/23 08:00 12:24 Unknown WBC 6.52 RBC 4.29 L Hgb 12.6 L Hct 38.4 L MCV 89.5 MCH 29.4 MCHC 32.8 RDW Std Deviation 43.0 RDW Coeff of Deandre 13.2 Plt Count 224 MPV 11.1 Immature Gran % (Auto) 0.6 Neut % (Auto) 55.3 Lymph % (Auto) 35.6 [place] % (Auto) 5.2 Eos % (Auto) 2.8 Baso % (Auto) 0.5 Neut # (Auto) 3.61 Lymph # (Auto) 2.32 [place] # (Auto) 0.34 Eos # (Auto) 0.18 Baso # (Auto) 0.03 Immature Gran # (Auto) 0.04 Sodium 140 Potassium 5.5 H Chloride 113 H Carbon Dioxide 22 Anion Gap 5 BUN 51 H Creatinine 1.25 Est Cr Clr Drug Dosing 68.9 Est GFR ( Amer) 72.6 Est GFR (Non-Af Amer) 62.6 BUN/Creatinine Ratio 40.8 H Glucose 108 H Calcium 9.3 Magnesium 2.1 Total Bilirubin 0.2 AST 14 ALT 13 Alkaline Phosphatase 99 Troponin I High Sens 15.5 35.1 H D Total Protein 7.9 Albumin 4.3 Globulin 3.6 Albumin/Globulin Ratio 1.2 Lipase 10 L Adenovirus (PCR) Not Detected B. pertussis DNA (PCR) Not Detected B.parapertussis DNA PCR Not Detected C. pneumoniae DNA (PCR) Not Detected Coronavirus OC43 (PCR) Not Detected Coronavirus HKU1 (PCR) Not Detected Coronavirus 229E (PCR) Not Detected SARS-CoV-2 (PCR) Not Detected Coronavirus NL63 (PCR) Not Detected Human Metapneumovir PCR Not Detected Influenza Type A (PCR) Not Detected Influenza Type B (PCR) Not Detected M. pneumoniae (PCR) Not Detected Parainfluenza 1 (PCR) Not Detected Parainfluenza 2 (PCR) Not Detected Parainfluenza 3 (PCR) Not Detected Parainfluenza 4 (PCR) Not Detected RSV (PCR) Not Detected Entero/Rhino (PCR) Not Detected Diagnostic Findings Chest x-ray 10/12/2023 normal size cardiac silhouette CT chest, personally reviewed. No aortic dissection moderate coronary calcification with probable coronary stent left circumflex CT abdomen distal aortic and iliac atheromatous disease
[2023-10-12] MEDS ORDERED: ONDANSETRON INJ 2 MG/ML 2 ML VIAL IV PRN (15:31)
[2023-10-12] MEDS: METOPROLOL TARTRATE 25 MG TAB PO SCH (16:26)
[2023-10-12] MEDS: ISOSORBIDE MONO EXTENDED REL 30 MG TABCR PO SCH (16:26)
[2023-10-12] MEDS: PANTOprazole 40 MG in SYRINGE 0 ML IV SCH (16:26)
[2023-10-12] MEDS: lisinopril 20 MG TAB PO SCH (16:26)
[2023-10-12] MEDS: BUPRENORPHINE/NALOXONE 8/2 MG TAB SL STA (16:26)
[2023-10-12] MEDS: CHERRY SYRUP 5 ML UDP PO SCH (17:56)
[2023-10-12] MEDS: VANCOMYCIN HCL 125 MG/2.5ML SOLN PO SCH (17:56)
[2023-10-12 20:16] LABS: Adenovirus F 40/41 PCR Not Detected (NotDetected); Astrovirus PCR Not Detected (NotDetected); Campylobacter PCR Not Detected (NotDetected); Cryptosporidium PCR Not Detected (NotDetected); Cyclospora cayetanensis PCR Not Detected (NotDetected); Entamoeba histolytica PCR Not Detected (NotDetected); Enteroaggregative E.coli(EAEC) Not Detected (NotDetected); Enteropathogenic E.coli (EPEC) Not Detected (NotDetected); Enterotoxigenic E.coli (ETEC) Not Detected (NotDetected); Giardia lamblia PCR Not Detected (NotDetected); Norovirus GI/GII PCR Not Detected (NotDetected); Plesiomonas shigelloides PCR Not Detected (NotDetected); Rotavirus A PCR Not Detected (NotDetected); Salmonella PCR Not Detected (NotDetected); Sapovirus PCR Not Detected (NotDetected); Shiga-like Toxin E.coli (STEC) Not Detected (NotDetected); Shigella/Enteroinvasive E.coli Not Detected (NotDetected); Vibrio cholerae PCR Not Detected (NotDetected); Vibrio species PCR Not Detected (NotDetected); Yersinia enterocolitica PCR Not Detected (NotDetected)
[2023-10-12] MEDS: MIRTAZAPINE TAB 15 MG TAB PO SCH (22:06)
[2023-10-12] MEDS: lamoTRIgine 25 MG TAB PO SCH (22:07)
[2023-10-12] MEDS: ATORVASTATIN 40 MG TAB PO SCH (22:08)
[2023-10-12] MEDS: DULoxetine HCL 60 MG CAP PO SCH (22:09)
[2023-10-12] MEDS: DULoxetine HCL 30 MG CAP PO SCH (22:09)
--- NOTE | 2023-10-13 07:46 | Electrocardiogram Report ---
Test Reason : Blood Pressure : / mmHG Vent. 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
--- NOTE | 2023-10-13 07:46 | Electrocardiogram Report ---
Test Reason : Blood Pressure : / mmHG Vent. 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
[2023-10-13 08:38] LABS: Hematocrit (blood only) 32.4 % (42.0-52.0); Hemoglobin 10.6 g/dl (14.0-18.0); Mean Corpuscular Hemoglobin 29.4 pg (25.0-34.0); Mean Corpuscular Hgb Conc 32.7 g/dL (32.0-36.0); Mean Platelet Volume 10.8 fL (9.4-12.4); Platelet Count 197 K/uL (130-400); RDW Coefficient of Variation 13.3 % (11.5-14.5); RDW Standard Deviation 43.8 fL (36.4-46.3)
[2023-10-13] MEDS: ASPIRIN 81 MG ECTAB PO SCH (08:48)
[2023-10-13] MEDS: CHOLECALCIFEROL 25 MCG (1000 UNITS) TAB PO SCH (08:48)
[2023-10-13] MEDS: BUPRENORPHINE/NALOXONE 8/2 MG TAB SL SCH (08:55)
[2023-10-13 08:58] LABS: BUN Creatinine Ratio 27.6 (10-20); Calcium 8.4 mg/dl (8.6-10.3); Creatinine Clr Calc Pharmacy 89.6 ml/min; Est GFR (African American) 97.4 ml/min; Est GFR (Non-African American) 84.1 ml/min; Potassium 4.4 mmol/L (3.5-5.1)
[2023-10-13 09:06] LABS: Estimated Average Glucose 128 mg/dl; Hemoglobin A1C 6.1 % (4.5-5.6)
[2023-10-13] MEDS: LOPERAMIDE HCL 2 MG CAP PO PRN (10:59)
[2023-10-13] MEDS: SODIUM CHLORIDE 0.9% 1,000 ML IV SCH (10:59)
--- NOTE | 2023-10-13 12:04 | Cardiology Progress Note ---
Date of Service October 13, 2023 Assessment & Plan (1) Elevated troponin: (2) Chest pain: (3) Diarrhea: Plan 58-year-old male presents with symptoms of chest pain superimposed on 8 days of severe diarrhea malaise and low-grade fevers and chills Prior history of known coronary disease with prior coronary invention, patient noting nonrevascularized vessel due to collateral fill No ischemic evolution on EKG Mild elevation in troponin on second test Agree with current plan as outlined resume cardiac medications holding diuretic Echocardiogram assess LV function If troponin increases further consider IV anticoagulation with heparin Patient at risk for demand ischemia given nonrevascularizable vessel, acute illness Cardiology will follow Please request records from [facility] 10/13/2023 No further symptoms suggest ischemic heart disease with mild elevation in troponins possibly demand based. Echocardiogram with normal to hyperdynamic LV systolic function and no wall motion abnormality Still with multiple loose stools with drop in hemoglobin Blood pressure is low Consider fluid resuscitation Would continue to hold torsemide and lisinopril Admission and Anticipated Discharge Date Admission Date: October 12, 2023 Subjective Patient seen and examined, chart, medications, telemetry reviewed. No further chest pain or discomfort. Still with frequent diarrhea Per patient at least 3 times overnight Blood pressures trending low No dizziness or lightheadedness though minimal activity in room Review of Systems Review of Systems: All systems reviewed & are unremarkable except as noted in Subjective Physical Exam Constitutional: + ill appearing Eyes: PERRL, conjunctivae normal, anicteric sclerae ENMT: external ear and nose normal, oropharynx normal Neck: trachea midline, no thyromegaly Respiratory: normal respiratory effort, lungs clear to auscultation Cardiovascular: RRR, no murmur, no edema Heart Sounds: normal S1 and normal S2 Vessels: no JVD Extremities: no edema Gastrointestinal (Abdomen): Percussion/Palpation: + abdomen tender (Left lower quadrant) and abdomen soft Musculoskeletal: no cyanosis or clubbing, extremities motor strength 5/5 Skin: no rashes, warm and dry Results & Data Vital Signs (Past 12 Hours) Vital Signs Temp Pulse Pulse Resp BP Pulse Ox O2 Del Method 10/13/23 07:59 55 L 10/13/23 07:59 Room Air 10/13/23 07:10 37.0 C 58 L 17 94/57 L 91 Room Air 10/13/23 03:00 36.6 C 60 17 114/65 94 Room Air Laboratory Results Laboratory Results - last 24 hr 10/12/23 10/12/23 10/12/23 12:24 17:48 18:45 WBC RBC Hgb Hct MCV MCH MCHC RDW Std Deviation RDW Coeff of Deandre Plt Count MPV Sodium Potassium Chloride Carbon Dioxide Anion Gap BUN Creatinine Est Cr Clr Drug Dosing Est GFR ( Amer) Est GFR (Non-Af Amer) BUN/Creatinine Ratio Glucose Estimat Average Glucose Hemoglobin A1c Calcium Magnesium Troponin I High Sens 35.1 H D 23.4 H D Triglycerides Cholesterol LDL Cholesterol, Calc VLDL Cholesterol, Calc HDL Cholesterol Cholesterol/HDL Ratio Nasal Screen MRSA (PCR) Stl C. cayetanensis PCR Not Detected Stool Rotavirus A PCR Not Detected Stl Adenov F 40/41 PCR Not Detected Stool Astrovirus (PCR) Not Detected Stool Campylobacter PCR Not Detected Stl C. diff Tox B Gene Negative Cdiff Gene Stool Cryptosporidium PCR Not Detected Stl E.coli Shiga Tox PCR Not Detected Stl Enterotoxigenic E PCR Not Detected Stool EPEC (PCR) Not Detected Stool EAEC (PCR) Not Detected Stl E. histolytica PCR Not Detected Stool Giardia Lamblia PCR Not Detected Stool Salmonella PCR Not Detected Stool Sapovirus (PCR) Not Detected Stl P. shigelloides PCR Not Detected Stl Shigella/EIEC PCR Not Detected St Y.enterocolitica PCR Not Detected Stool Vibrio (PCR) Not Detected Stl Vibrio cholerae PCR Not Detected Stl Norovirus GI/GII PCR Not Detected 10/12/23 10/12/23 10/13/23 22:24 Unknown 08:04 WBC 5.10 RBC 3.60 L Hgb 10.6 L Hct 32.4 L MCV 90.0 MCH 29.4 MCHC 32.7 RDW Std Deviation 43.8 RDW Coeff of Deandre 13.3 Plt Count 197 MPV 10.8 Sodium 140 Potassium 4.4 Chloride 113 H Carbon Dioxide 23 Anion Gap 4 BUN 27 H D Creatinine 0.98 Est Cr Clr Drug Dosing 89.6 Est GFR ( Amer) 97.4 Est GFR (Non-Af Amer) 84.1 BUN/Creatinine Ratio 27.6 H Glucose 139 H Estimat Average Glucose 128 Hemoglobin A1c 6.1 H Calcium 8.4 L Magnesium 2.0 Troponin I High Sens 15.4 D Triglycerides 153 H Cholesterol 123 LDL Cholesterol, Calc 61 VLDL Cholesterol, Calc 31 H HDL Cholesterol 31 Cholesterol/HDL Ratio 4.0 Nasal Screen MRSA (PCR) Negative Stl C. cayetanensis PCR Stool Rotavirus A PCR Stl Adenov F 40/41 PCR Stool Astrovirus (PCR) Stool Campylobacter PCR Stl C. diff Tox B Gene Stool Cryptosporidium PCR Stl E.coli Shiga Tox PCR Stl Enterotoxigenic E PCR Stool EPEC (PCR) Stool EAEC (PCR) Stl E. histolytica PCR Stool Giardia Lamblia PCR Stool Salmonella PCR Stool Sapovirus (PCR) Stl P. shigelloides PCR Stl Shigella/EIEC PCR St Y.enterocolitica PCR Stool Vibrio (PCR) Stl Vibrio cholerae PCR Stl Norovirus GI/GII PCR (2) Chest pain Chest pain type: unspecified Qualified Code(s): R07.9 - Chest pain, unspecified
[2023-10-13 14:31] LABS: Hematocrit (blood only) 28.8 % (42.0-52.0); Hemoglobin 9.5 g/dl (14.0-18.0)
[2023-10-13] MEDS ORDERED: PANTOPRAZOLE BOLUS/DRIP IV STA (15:26)
[2023-10-13] MEDS: PANTOprazole 80 MG in DEXTROSE 5% 100 ML IV ONE (16:17)
[2023-10-13] MEDS: PANTOprazole 40 MG in DEXTROSE 5% MINI-B 100 ML IV SCH (16:33)
--- NOTE | 2023-10-13 17:45 | Hospitalist Progress Note ---
Date of Service October 13, 2023 Assessment & Plan (1) Chest pain: (2) H/O heart artery stent: Plan: - Admit to tele for observation for r/o - Trend cardiac biomarkers, initial set was negative, second is 35, retrend at 4 pm - if elevates then will need heparin gtt for anticoagulation - Nitropaste ordered - EKG reviewed as above, no ST wave inversions or signs of ischemia. Repeating x 1 more. - Check 2 D echo - If negative enzymes can consider a stress test tomorrow morning. - Consult cardiology - PT/OT consulted - Missed am meds including lisionpril, metoprolol, imdur today - will administer now - Hold torsemide 20 mg BID for now until obtain ECHO, also holding further fluids with needs for volume assessment. He appears euvolemic to dry clinically. 10/12 ACS ruled out Hold aspirin in light of decreasing Hg (3) Diarrhea: Plan: C. difficile ruled out Imodium as needed, IV fluids Melena, possible GI bleed Hemoglobin dropped from 12, now 9 Protonix drip, IV fluids, n.p.o. GI consulted Repeat hemoglobin at 8 PM and 4 PM (4) History of left below knee amputation: Plan: - Hx of such, stump is intact, no infection. DVT ppx: teds, scds Lines: PIV x 1 FEN/GI: Allow clears CODE: Full code Dispo: From home, likely to remain in the hospital x 1-2 days Admission and Anticipated Discharge Date Admission Date: October 12, 2023 Subjective Follow-up for chest pain, diarrhea, etc. Seen resting in bed, watching TV, comfortable States he still having diarrhea, 4-5 times, watery, black stools No chest pain today Has mild abdominal discomfort No fevers or chills No other new symptom Review of Systems Review of Systems: all noted and negative except for above Physical Exam Physical Exam: General- oriented x 3, not in distress, speaks in sentences with no effort or accessory muscle use Eyes- anicteric Neck- no JVD Lungs- clear breath sounds bilaterally, No crackles or wheezes Heart- normal rate, regular rhythm; no murmurs Abdomen- normal bowel sounds, nondistended, soft, nontender Extremities- no pretibial edema, no calf tenderness Neuro- alert, oriented x 3; no gross focal neurologic deficits Skin- warm & dry Results & Data Results & Data Vital Signs (Past 12 Hours) Vital Signs Temp Pulse Pulse Resp BP Pulse Ox O2 Del Method 10/13/23 15:51 36.4 C L 59 L 17 114/64 92 Room Air 10/13/23 12:24 37.2 C 61 17 116/64 93 Room Air 10/13/23 07:59 55 L 10/13/23 07:59 Room Air 10/13/23 07:10 37.0 C 58 L 17 94/57 L 91 Room Air all noted and reviewed including below
[2023-10-13 21:19] LABS: Hematocrit (blood only) 28.4 % (42.0-52.0); Hemoglobin 9.3 g/dl (14.0-18.0)
[2023-10-14 01:46] LABS: Hematocrit (blood only) 28.2 % (42.0-52.0); Hemoglobin 9.5 g/dl (14.0-18.0)
[2023-10-14 02:02] LABS: BUN Creatinine Ratio 20.2 (10-20); Calcium 8.4 mg/dl (8.6-10.3); Creatinine Clr Calc Pharmacy 104.5 ml/min; Est GFR (African American) 111.1 ml/min; Est GFR (Non-African American) 95.8 ml/min; Potassium 3.9 mmol/L (3.5-5.1)
[2023-10-14 08:48] LABS: Hematocrit (blood only) 29.9 % (42.0-52.0); Hemoglobin 10.1 g/dl (14.0-18.0)
--- NOTE | 2023-10-14 10:33 | Gastrointestinal Consultation ---
Date of Consultation October 14, 2023 Assessment & Plan (1) Anemia: (2) Melena: Plan -Continue IV Protonix drip -Keep NPO for EGD today as long as cardiology has no objections -Continue to monitor H/H -Further recommendations pending results of testing Supervising Physician Co-Signing Physician Notes Agree with IVA Restrepo as above Abd: Soft, NT, ND, +BS Continue current therapy and supportive care Proceed with EGD. History of Present Illness Reason for Consultation: Melena, anemia Attending Physician: Quincy Hughes MD History of Present Illness Patient is a 58 yo incarcerated male who recently developed epigastric pain and melena. He was brought to the ED and noted to have anemia. H/H currently 10.1/29.9. He has a history of gastric and duodenal ulcers many years ago. He does take NSAIDs prn as well as a baby aspirin daily due to his cardiac history. He has a history of cardiac stent placement in 2019 and notes a recent history 6 months ago of a cardiac event, though we do not have records from [place] regarding this. He saw cardiology during this admission and has had a slightly elevated troponin that immediately returned to normal. An echocardiogram did not demonstrate alarming findings. He notes that he has been having loose, black stools ongoing for several days. He notes that separate to this issue he had been noting LLQ pain lately. No fever, chills. No pertinent family history. Stool PCR negative including C diff. BUN normal. CTA abdomen/pelvis indicated: 1. No abdominal aortic dissection. Extensive aortoiliac atherosclerotic plaque. Severe multifocal stenoses within the bilateral common iliac arteries. In addition, severe stenoses within the left external iliac and common femoral arteries with a diminutive left superficial femoral artery. Mild dilatation of the right common iliac artery. 2. No acute process within the abdomen or pelvis. 3. No bowel obstruction. No bowel wall thickening. Normal appendix. 4. 8 mm left lower pole renal lesion. This probably reflects a cyst however measures above water attenuation. Nonemergent renal ultrasound is recommended to exclude the possibility of a small solid renal lesion. Chest CTA unremarkable. Allergies Allergy/AdvReac Type Severity Reaction Status Date / Time animal dander Allergy Unknown Unknown Unverified 10/12/23 12:48 codeine Allergy Unknown Unknown Unverified 10/12/23 12:48 Home Medications Medication Instructions Recorded Confirmed Type albuterol sulfate 90 mcg/actuation 2 puff inhalation QID PRN 10/12/23 10/12/23 History aerosol inhaler SOB/WHEEZING aspirin 81 mg tablet,delayed 81 mg PO DAILY 10/12/23 10/12/23 History release atorvastatin 80 mg tablet 80 mg PO HS 10/12/23 10/12/23 History buprenorphine 8 mg-naloxone 2 mg 1 tab sublingual UD 10/12/23 10/12/23 History sublingual tablet cholecalciferol (vitamin D3) 25 50 mcg PO DAILY 10/12/23 10/12/23 History mcg (1,000 unit) tablet (Vitamin D3) diclofenac potassium 50 mg tablet 50 mg PO BID PRN Unknown 10/12/23 10/12/23 History duloxetine 30 mg capsule,delayed 30 mg PO HS 10/12/23 10/12/23 History release duloxetine 60 mg capsule,delayed 60 mg PO HS 10/12/23 10/12/23 History release isosorbide mononitrate 30 mg 30 mg PO DAILY 10/12/23 10/12/23 History tablet,extended release 24 hr lamotrigine 25 mg tablet 75 mg PO BID 10/12/23 10/12/23 History lisinopril 20 mg tablet 20 mg PO DAILY 10/12/23 10/12/23 History loperamide 2 mg tablet (Diamode) 4 mg PO DAILY 10/12/23 10/12/23 History metoprolol tartrate 25 mg tablet 25 mg PO BID 10/12/23 10/12/23 History mirtazapine 30 mg tablet 30 mg PO HS 10/12/23 10/12/23 History torsemide 20 mg tablet 20 mg PO BID 10/12/23 10/12/23 History Patient History Medical History (Updated 10/14/23 @ 11:01 by Neena Guo DO) History of tobacco use History of epigastric pain History of melena History of coronary artery disease C. difficile diarrhea Surgical History (Updated 10/14/23 @ 11:01 by Neena Guo DO) History of hip surgery R femur fx s/p IM Nail History of left below knee amputation H/O heart artery stent Social History Smoking Status: Former smoker Second Hand Exposure: No; Do You Dip or Chew Tobacco: No; Tobacco Cessation Education Requested by Patient: No Hx Alcohol Use: No Hx Substance Use: No Preferred Language: Stateless Communication Ability: Effective Loss Mitigation Specialist Required: No Beliefs That Will Affect Care: None Current Living Situation: Other Current Living Situation Comment: [facility] Other Information That Helps Us Care for You: No Feels Safe at Home: Yes Safety Concerns: Feels Safe At This Time Assistive Devices: Denture - Upper and Prosthesis Review of Systems Constitutional: no fever and no chills Respiratory: no cough and no dyspnea Cardiovascular: no chest pain Gastrointestinal: + abdominal pain, + diarrhea/loose stool s and + melena; no blood in stools Psychiatric: no problem reported Hematologic / Lymphatic: no unexplained weight loss Physical Exam Constitutional: well developed Respiratory: normal respiratory effort Cardiovascular: Rate/Rhythm: regular rate Gastrointestinal (Abdomen): normal bowel sounds, soft, nontender, no hepatosplenomegaly Psychiatric: Orientation: alert and oriented x 3 Results & Data Vital Signs (Past 12 Hours) Vital Signs Temp Pulse Pulse Resp BP Pulse Ox O2 Del Method 10/14/23 08:00 Room Air 10/14/23 07:26 37.0 C 62 18 110/62 91 Room Air 10/14/23 02:36 36.9 C 60 18 113/65 94 Room Air 10/13/23 23:01 67 10/13/23 22:36 36.6 C 66 18 138/71 94 Room Air PG Care Time/CCT Total # of Minutes Spent Total Time Spent with Patient: Total time spent is greater than 50% in coordination of care (as documented) at patient's floor/unit and/or counseling patient: Coding Level of Care Code 82577 IN/OBS CONSULT LVL 4,60M Diagnoses Anemia D64.9 Melena K92.1
--- NOTE | 2023-10-14 11:02 | Anesthesiology Consultation ---
Date of Service October 14, 2023 Assessment & Plan Chart Review Chart Review: Acceptable Risk for Surgery Consults Requested none ASA ASA3 Proposed Anesthesia Anesthesia Type: MAC Risk / Benefits Reviewed With: PT / POA / Parent / Guardian, Accepts Plan and Informed Consent Obtained History Surgery Operation Date: 10/14/23 17:00 Proposed Procedures p Esophagogastroduodenoscopy Dr Jeffers - Lamin Jeffers, DO Height/Weight Height: 5 ft 8 in Weight: 92.5 kg Allergies Allergy/AdvReac Type Severity Reaction Status Date / Time animal dander Allergy Unknown Unknown Unverified 10/12/23 12:48 codeine Allergy Unknown Unknown Unverified 10/12/23 12:48 Medications Home Medications Medication Instructions Recorded Confirmed Last Taken albuterol sulfate 90 mcg/actuation 2 puff inhalation QID PRN 10/12/23 10/12/23 Unknown aerosol inhaler SOB/WHEEZING aspirin 81 mg tablet,delayed 81 mg PO DAILY 10/12/23 10/12/23 Unknown release atorvastatin 80 mg tablet 80 mg PO HS 10/12/23 10/12/23 Unknown buprenorphine 8 mg-naloxone 2 mg 1 tab sublingual UD 10/12/23 10/12/23 Unknown sublingual tablet cholecalciferol (vitamin D3) 25 50 mcg PO DAILY 10/12/23 10/12/23 Unknown mcg (1,000 unit) tablet (Vitamin D3) diclofenac potassium 50 mg tablet 50 mg PO BID PRN Unknown 10/12/23 10/12/23 Unknown duloxetine 30 mg capsule,delayed 30 mg PO HS 10/12/23 10/12/23 Unknown release duloxetine 60 mg capsule,delayed 60 mg PO HS 10/12/23 10/12/23 Unknown release isosorbide mononitrate 30 mg 30 mg PO DAILY 10/12/23 10/12/23 Unknown tablet,extended release 24 hr lamotrigine 25 mg tablet 75 mg PO BID 10/12/23 10/12/23 Unknown lisinopril 20 mg tablet 20 mg PO DAILY 10/12/23 10/12/23 Unknown loperamide 2 mg tablet (Diamode) 4 mg PO DAILY 10/12/23 10/12/23 Unknown metoprolol tartrate 25 mg tablet 25 mg PO BID 10/12/23 10/12/23 Unknown mirtazapine 30 mg tablet 30 mg PO HS 10/12/23 10/12/23 Unknown torsemide 20 mg tablet 20 mg PO BID 10/12/23 10/12/23 Unknown Active Medications Generic Name Dose Route Start Last Admin Trade Name Crow STEWART Reason Stop Dose Admin Aspirin 81 mg 10/13/23 09:00 10/13/23 08:48 Aspirin 81 Mg Ectab PO 11/12/23 08:59 81 mg DAILY LATHA Administration Atorvastatin Calcium 80 mg 10/12/23 21:00 10/13/23 20:35 Atorvastatin 40 Mg Tab PO 11/11/23 20:59 80 mg HS LATHA Administration Buprenorphine/Naloxone 1 tab 10/13/23 09:00 10/14/23 09:29 Buprenorphine/Naloxone 8/2 Mg Tab SL 11/12/23 08:59 1 tab DAILY LATHA Administration Duloxetine HCl 30 mg 10/12/23 21:00 10/13/23 20:35 Duloxetine Hcl 30 Mg Cap PO 11/11/23 20:59 30 mg HS LATHA Administration Duloxetine HCl 60 mg 10/12/23 21:00 10/13/23 20:35 Duloxetine Hcl 60 Mg Cap PO 11/11/23 20:59 60 mg HS LATHA Administration Sodium Chloride 1,000 mls @ 100 mls/hr 10/13/23 10:45 10/14/23 05:48 Nss IV 11/12/23 10:44 100 mls/hr .Q10H LATHA Administration Pantoprazole Sodium 40 mg/ 100 mls @ 20 mls/hr 10/13/23 15:45 10/14/23 10:22 Dextrose IV 11/12/23 15:44 Infused Q5H LATHA Infusion 8 MG/HR Isosorbide Mononitrate 30 mg 10/12/23 14:30 10/13/23 08:48 Isosorbide [place] Extended Rel 30 Mg Tabcr PO 11/11/23 14:29 30 mg DAILY LATHA Administration Lamotrigine 75 mg 10/12/23 21:00 10/14/23 11:34 Lamotrigine 25 Mg Tab PO 11/11/23 20:59 75 mg BID LATHA Administration Protocol Lisinopril 20 mg 10/12/23 14:30 10/12/23 16:26 Lisinopril 20 Mg Tab PO 11/11/23 14:29 20 mg DAILY LATHA Administration Loperamide HCl 2 mg 10/13/23 10:43 10/14/23 06:26 Loperamide Hcl 2 Mg Cap PO 11/12/23 10:42 2 mg UD PRN Administration Diarrhea Metoprolol Tartrate 25 mg 10/12/23 14:30 10/14/23 09:27 Metoprolol Tartrate 25 Mg Tab PO 11/11/23 14:29 25 mg BID LATHA Administration Mirtazapine 30 mg 10/12/23 21:00 10/13/23 20:35 Mirtazapine Tab 15 Mg Tab PO 11/11/23 20:59 30 mg HS LATHA Administration Vitamin D 50 mcg 10/13/23 09:00 10/14/23 09:28 Cholecalciferol 25 Mcg (1000 Units) Tab PO 11/12/23 08:59 50 mcg DAILY LATHA Administration NPO Date Last Intake of Fluids: 10/13/23 Time Last Intake of Fluids: 12:00 Date Last Intake of Solids: 10/13/23 Time Last Intake of Solids: 12:00 Past Medical History Medical History (Updated 10/14/23 @ 11:01 by Neena Guo DO) History of tobacco use History of epigastric pain History of melena History of coronary artery disease C. difficile diarrhea Exercise / Class Metabolic Activity III < 4 Walking/Shop/Light housework Past Surgical History Surgical History (Updated 10/14/23 @ 11:01 by Neena Guo DO) History of hip surgery R femur fx s/p IM Nail History of left below knee amputation H/O heart artery stent Past Anesthesia History No Hx of Anesthesia Complications and No Family Hx of Anesthesia Complications History of PONV No Hx of PONV and No Hx of Motion Sickness Social History Smoking Status: Former smoker Do You Dip or Chew Tobacco: No Hx Alcohol Use: No Hx Substance Use: No substance use type: does not use Physical Exam Vital Signs Last Vital Signs Temp 36.5 C 10/14/23 12:26 Pulse 52 L 10/14/23 12:26 Resp 12 10/14/23 12:26 BP 138/66 10/14/23 12:26 Pulse Ox 97 10/14/23 12:26 O2 Del Method Room Air 10/14/23 12:26 O2 Flow Rate 0 10/12/23 08:05 Constitutional + obese ENMT Mouth: + dentition abnormality and + edentulous; no TMJ abnormality Thyromental Distance: > or= 3.5 Finger Breadths Mallampati Class: II Neck normal visual inspection and trachea midline; neck extension not limited Respiratory normal respiratory effort Auscultation: lungs clear to auscultation bilaterally Cardiovascular Rate/Rhythm: regular rate and regular rhythm Heart Sounds: no murmur Musculoskeletal Spine: normal cervical ROM Extremities: full ROM of extremities Neurologic moves all extremities Psychiatric Orientation: alert and oriented x 3 Testing Laboratory Results 10/14/23 08:28 10/14/23 01:25 Hemoglobin A1c 6.1 % (4.5-5.6) H 10/13/23 08:04 Electrocardiogram Date: 10/13/23 Findings: + SB @ (57) and + SD (old inferior infarct) Chest X-Ray Date: 10/12/23 Findings: + pulmonary vascular congestion Echocardiogram Date: 10/12/23 EF: 65-70% LV Function: normal RWMA: + none Other Findings: + LVH (mild concen) and + diastolic dysfunction (gr 1) Valvular Disease: + no significant valvular disease
--- NOTE | 2023-10-14 13:51 | GI REPORT ---
Patient Name: Adan Ferrer Procedure Date: 10/14/2023 12:55 PM Date of : 1965 Admit Type: Inpatient Age: 58 Gender: Male Attending MD: Lamin Jeffers DO, Procedure: Upper GI endoscopy Providers: Lamin Jeffers DO Referring MD: Quincy Thacker MD Indications: Melena Medicines: Monitored Anesthesia Care Complications: No immediate complications. Estimated Blood Loss: Estimated blood loss: none. Procedure: Pre-Anesthesia Assessment: - Prior to the procedure, a History and Physical was performed, and patient medications and allergies were reviewed. The patient's tolerance of previous anesthesia was also reviewed. The risks and benefits of the procedure and the sedation options and risks were discussed with the patient. All questions were answered, and informed consent was obtained. Prior Anticoagulants: The patient has taken no anticoagulant or antiplatelet agents. ASA Grade Assessment: III - A patient with severe systemic disease. After reviewing the risks and benefits, the patient was deemed in satisfactory condition to undergo the procedure. After obtaining informed consent, the endoscope was passed under direct vision. Throughout the procedure, the patient's blood pressure, pulse, and oxygen saturations were monitored continuously. The Endoscope was introduced through the mouth, and advanced to the second part of duodenum. The upper GI endoscopy was accomplished without difficulty. The patient tolerated the procedure well. Findings: The esophagus was normal. Localized moderate inflammation characterized by erosions and erythema was found in the entire examined stomach. Biopsies were taken with a cold forceps for histology. Many non-bleeding cratered gastric ulcers with no stigmata of bleeding were found in the gastric antrum. The largest lesion was 8 mm in largest dimension. The examined duodenum was normal. Impression: - Normal esophagus. - Gastritis. Biopsied. - Non-bleeding gastric ulcers with no stigmata of bleeding. - Normal examined duodenum. Recommendation: - Resume previous diet. - Continue present medications. - Await pathology results. - Return to primary care physician as previously scheduled. Lamin Jeffers DO 10/14/2023 1:51:13 PM This report has been signed electronically. Note Initiated On: 10/14/2023 12:55 PM Number of Addenda: 0 I attest to the content of the Intraoperative Record and orders documented therein, exceptions below {[id number]}
--- NOTE | 2023-10-14 14:10 | Anesthesiology Progress Note ---
Date of Service October 14, 2023 Anesthesia Post Procedure Vital Signs Vital Signs: Temp Pulse Pulse Resp BP Pulse Ox O2 Del Method 10/14/23 14:01 59 L 16 112/57 L 93 Room Air 10/14/23 13:45 59 L 16 101/58 L 95 Room Air 10/14/23 12:49 54 L 10/14/23 12:26 36.5 C 52 L 12 138/66 97 Room Air 10/14/23 11:24 36.7 C 50 L 20 105/56 L 94 Room Air 10/14/23 08:00 Room Air 10/14/23 07:26 37.0 C 62 18 110/62 91 Room Air 10/14/23 02:36 36.9 C 60 18 113/65 94 Room Air 10/13/23 23:01 67 10/13/23 22:36 36.6 C 66 18 138/71 94 Room Air 10/13/23 19:08 37.2 C 56 L 18 95/56 L 94 Room Air 10/13/23 18:31 61 10/13/23 15:51 36.4 C L 59 L 17 114/64 92 Room Air Pain Intensity Left Chest: Pain Intensity: 4 Left Lower Abdomen: Pain Intensity: 5 Transfer of Care Handoff Completed per policy Notes Mental Status: alert / awake / arousable Patient Amnestic to Procedure: Yes Nausea / Vomiting: adequately controlled Pain: adequately controlled Airway Patency, RR, SpO2: stable & adequate BP & HR: stable & adequate Hydration State: stable & adequate Anesthetic Complications: no major complications apparent and Pt Satisfied with anesthetic care
--- NOTE | 2023-10-14 14:29 | Hospitalist Progress Note ---
Date of Service October 14, 2023 Assessment & Plan (1) Chest pain: (2) H/O heart artery stent: (3) Diarrhea: (4) History of left below knee amputation: Plan Five 8-year-old male presenting from [facility] with chest pain along with superimposed 8 days of diarrhea, malaise with low-grade fever and chills. Chest pain, history of CAD with prior stents- ACS ruled out. Seen by cardiology. Recommendations noted. echo with normal to hyperdynamic LV systolic function and wall motion abnormality. Diarrhea- improving. C. difficile negative. Imodium as needed. Will add fibers. Melena- H&H trend have been stable. Continue IV Protonix. Status post EGD which showed findings as below. discussed with GI and recommended continue PPI twice daily. The esophagus was normal. Localized moderate inflammation characterized by erosions and erythema was found in the entire examined stomach. Biopsies were taken with a cold forceps for histology. Many non-bleeding cratered gastric ulcers with no stigmata of bleeding were found in the gastric antrum. The largest lesion was 8 mm in largest dimension. The examined duodenum was normal. Hypertension- now BP rebounding. Will resume lisinopril and torsemide as indicated. Abnormal CT abdomen- noted arterial stenosis for which Will continue aspirin, statin and recommend outpatient vascular evaluation. Noted left renal lesion for which recommend outpatient renal ultrasound. CT abdomen pelvis 1. No abdominal aortic dissection. Extensive aortoiliac atherosclerotic plaque. Severe multifocal stenoses within the bilateral common iliac arteries. In john tion, severe stenoses within the left external iliac and common femoral arteries with a diminutive left superficial femoral artery. Mild dilatation of the right common iliac artery. 2. No acute process within the abdomen or pelvis. 3. No bowel obstruction. No bowel wall thickening. Normal appendix. 4. 8 mm left lower pole renal lesion. This probably reflects a cyst however measures above water attenuation. Nonemergent renal ultrasound is recommended to exclude the possibility of a small solid renal lesion. DVT ppx- SCD Disposition- anticipate discharge tomorrow back to the [facility] time spent- approximately 35 minutes Admission and Anticipated Discharge Date Admission Date: October 13, 2023 Subjective patient was seen and examined at bedside. States still with diarrhea but improved from last week. Also has some lower abdominal pain. No fever, chills, chest pain or shortness of breath, nausea or vomiting. N.p.o. for EGD today. Review of Systems Review of Systems: All systems reviewed & are unremarkable except as noted in Subjective Physical Exam Physical Exam: General: Lying comfortably in bed, not in distress, on room air HEENT: EOMI, AIDE, MMM Chest: Clear breath sounds bilaterally, no wheezes or crackles CVS: Regular rate and rhythm, normal heart sounds, no murmur Abdomen: Soft, not distended, normal bowel sounds Neuro: Awake, alert, oriented, conversing well, non focal Extremities: left BKA Results & Data Results & Data Vital Signs (Past 12 Hours) Vital Signs Temp Pulse Pulse Resp BP Pulse Ox O2 Del Method 10/14/23 14:01 59 L 16 112/57 L 93 Room Air 10/14/23 13:45 59 L 16 101/58 L 95 Room Air 10/14/23 12:49 54 L 10/14/23 12:26 36.5 C 52 L 12 138/66 97 Room Air 10/14/23 11:24 36.7 C 50 L 20 105/56 L 94 Room Air 10/14/23 08:00 Room Air 10/14/23 07:26 37.0 C 62 18 110/62 91 Room Air 10/14/23 02:36 36.9 C 60 18 113/65 94 Room Air Laboratory Results Short CBC 10/13/23 10/14/23 10/14/23 Range/Units 20:30 01:25 08:28 Hgb 9.3 L 9.5 L 10.1 L (14.0-18.0) g/dl Hct 28.4 L 28.2 L 29.9 L (42.0-52.0) % BMP 10/14/23 01:25 Sodium 140 Potassium 3.9 Chloride 114 H Carbon Dioxide 22 BUN 17 Creatinine 0.84 Glucose 98 Calcium 8.4 L
[2023-10-14] MEDS: LIDOCAINE 2% 2 ML VIAL/AMP(20MG/ML) INFIL ONE (14:50)
[2023-10-14] MEDS: ONDANSETRON INJ 2 MG/ML 2 ML VIAL ONE (14:50)
[2023-10-14] MEDS: PROPOFOL IV EMULSION 10 MG/ML 20 ML VIAL IV ONE (14:50)
[2023-10-14] MEDS: MIDAZOLAM HCL 1 MG/ML 2ML VIAL ONE (14:50)
[2023-10-14] MEDS: ePHEDrine sulfate 50 MG/5 ML SYR ONE (14:51)
[2023-10-14] MEDS: PSYLLIUM or GUAR GUM FIBER 4GM PACKET PO SCH (15:31)
[2023-10-14] MEDS: PANTOprazole 40 MG in SYRINGE 0 ML IV SCH (21:26)
[2023-10-14] MEDS: ACETAMINOPHEN 325 MG TAB PO PRN (22:22)
--- NOTE | 2023-10-14 22:39 | Communication Note ---
Date of Service: October 14, 2023 Patient with achy abdominal discomfort and loose melanotic stools as per RN. CT abdomen pelvis 1. Possible mild colitis and associated gastroenteritis. 2. Mild bibasilar atelectasis or infiltrate, nonspecific, possible pneumonia. 3. Distended urinary bladder may be physiologic, cannot rule out mild urinary retention. AP UGIB status post EGD Possible UTI Follow H&H Continue PPI Check UA
[2023-10-14] MEDS: OPTIRAY 320 100ml IV ONE (23:10)
[2023-10-14 23:27] LABS: Hematocrit (blood only) 28.6 % (42.0-52.0); Hemoglobin 9.5 g/dl (14.0-18.0)
[2023-10-15 02:27] LABS: Basophils # (auto) 0.03 K/uL (0.00-0.20); Basophils % (auto) 0.5 %; Eosinophils # (auto) 0.18 K/uL (0.00-0.50); Eosinophils % (auto) 3.1 %; Hematocrit (blood only) 28.2 % (42.0-52.0); Hemoglobin 9.5 g/dl (14.0-18.0); Immature Granulocytes # (auto) 0.03 K/uL (0.01-0.20); Immature Granulocytes % (auto) 0.5 %; Lymphocytes % (auto) 39.3 %; Mean Corpuscular Hemoglobin 29.5 pg (25.0-34.0); Mean Corpuscular Hgb Conc 33.7 g/dL (32.0-36.0); Mean Corpuscular Volume 87.6 fL (80.0-100.0); Mean Platelet Volume 10.7 fL (9.4-12.4); Monocytes # (auto) 0.34 K/uL (0.11-0.59); Monocytes % (auto) 5.8 %; Neutrophils # (auto) 2.97 K/uL (1.40-6.50); Neutrophils % (auto) 50.8 %; Platelet Count 169 K/uL (130-400); RDW Standard Deviation 41.6 fL (36.4-46.3); Red Blood Count 3.22 M/uL (4.70-6.10); White Blood Count 5.85 K/ul (4.8-10.8)
[2023-10-15 02:37] LABS: BUN Creatinine Ratio 12.4 (10-20); Calcium 8.3 mg/dl (8.6-10.3); Creatinine Clr Calc Pharmacy 98.6 ml/min; Est GFR (African American) 108.5 ml/min; Est GFR (Non-African American) 93.6 ml/min; Potassium 3.8 mmol/L (3.5-5.1)
--- NOTE | 2023-10-15 02:55 | CT Scan Report ---
Exam(s): CT ABDOMEN + PELVIS With Contrast IV Amt: 94 ml opti 320 EXAM: CT Abdomen and Pelvis With Intravenous Contrast CLINICAL HISTORY: Reason for exam: abd pain, ugib. TECHNIQUE: Axial computed tomography images of the abdomen and pelvis with intravenous contrast. CTDI is 26.69 mGy and DLP is 1416.7 mGy-cm. Automated exposure control was utilized for the study. A dose lowering technique was utilized adhering to the principles of ALARA. CONTRAST: Patient received 94 ml opti 320 of IV contrast COMPARISON: CTA abdomen pelvis 10/12/23. FINDINGS: Lung bases: Mild bibasilar atelectasis or infiltrate, new, nonspecific, possible pneumonia. Liver: Unremarkable. Gallbladder and bile ducts: Normal gallbladder. No ductal dilation. Pancreas: No ductal dilation. Spleen: Unremarkable. Adrenals: Unremarkable. Kidneys and ureters: No pyelonephritis or hydronephrosis. Stomach and bowel: Intermittent fluid level throughout the colon, with wall thickening distally, nonspecific, cannot rule out mild colitis and associated gastroenteritis. No obstruction. No contrast extravasation or focal wall thickening in the upper GI tract to suggest a site of bleeding. Appendix: Normal. Intraperitoneal space: No free air or fluid. Bones/joints: No acute fracture. Soft tissues: Unremarkable. Vasculature: Severe aortoiliac atherosclerosis. No aortic aneurysm. Lymph nodes: No enlarged lymph nodes. Bladder: Moderately distended, may be physiologic, cannot rule out urinary retention. Reproductive: Unremarkable as visualized. IMPRESSION: 1. Possible mild colitis and associated gastroenteritis. 2. Mild bibasilar atelectasis or infiltrate, nonspecific, possible pneumonia. 3. Distended urinary bladder may be physiologic, cannot rule out mild urinary retention. Electronically signed by: Rosa Hunt M.D. 10/15/23 02:54 AM
[2023-10-15] MEDS: ACETAMINOPHEN 1,000 MG/100 ML VIAL IV STA ×2 (04:18→20:17)
[2023-10-15] MEDS: BUPRENORPHINE/NALOXONE 8/2 MG TAB SL STA (05:44)
[2023-10-15] MEDS: LACTATED RINGER'S 1,000 ML IV ONE (05:46)
[2023-10-15] MEDS: MoRPHine SULFATE 4 MG/ML 1 ML CARP\\VIAL IV STA (06:45)
[2023-10-15 07:43] LABS: Appearance Urine Clear (Clear); Bilirubin Urine Negative (Negative); Blood Urine Negative (Negative); Color Urine Yellow; Glucose Urine UA Negative (Negative); Ketones Urine Negative (Negative); Leukocyte Esterase Urine Negative (Negative); Nitrite Urine Negative (Negative); Protein Urine Negative (Negative); Specific Gravity Urine 1.012 (1.000-1.030); Urobilinogen Urine Negative (Negative)
[2023-10-15 08:42] LABS: Hematocrit (blood only) 28.9 % (42.0-52.0); Hemoglobin 9.5 g/dl (14.0-18.0)
[2023-10-15] MEDS: CIPROFLOXACIN 500 MG TAB PO SCH (11:27)
[2023-10-15] MEDS: metroNIDAZOLE 500 MG TAB PO SCH (13:40)
--- NOTE | 2023-10-15 17:17 | Hospitalist Progress Note ---
Date of Service October 15, 2023 Assessment & Plan (1) Chest pain: (2) H/O heart artery stent: (3) Diarrhea: (4) Colitis: (5) Bradycardia: Plan 58-year-old male presenting from residential with chest pain along with superimposed 8 days of diarrhea, malaise with low-grade fever and chills. CT abdomen/pelvis 10/14 1. Possible mild colitis and associated gastroenteritis. 2. Mild bibasilar atelectasis or infiltrate, nonspecific, possible pneumonia. 3. Distended urinary bladder may be physiologic, cannot rule out mild urinary retention. CT abdomen pelvis 10/11 1. No abdominal aortic dissection. Extensive aortoiliac atherosclerotic plaque. Severe multifocal stenoses within the bilateral common iliac arteries. In addition, severe stenoses within the left external iliac and common femoral arteries with a diminutive left superficial femoral artery. Mild dilatation of the right common iliac artery. 2. No acute process within the abdomen or pelvis. 3. No bowel obstruction. No bowel wall thickening. Normal appendix. 4. 8 mm left lower pole renal lesion. This probably reflects a cyst however measures above water attenuation. Nonemergent renal ultrasound is recommended to exclude the possibility of a small solid renal lesion. Diarrhea, LLQ pain- CT done yesterday shows possible mild colitis and associated gastroenteritis. GI panel couple days back was negative. Patient continues to have diarrhea despite Imodium and fibers. Will start on Cipro/Flagyl for suspected colitis. patient clinically does not have pneumonia. Will start on Lomotil as needed. If symptoms do not improve, will need to reengage GI for possible colonoscopy in house. Sinus Bradycardia- heart rate noted in 40s, patient asymptomatic. Will hold metoprolol and continue monitor on telemetry. Hopefully should improve once beta-sumit is out of his system. Chest pain, history of CAD with prior stents- ACS ruled out. Seen by cardiology. Recommendations noted. echo with normal to hyperdynamic LV systolic function and wall motion abnormality. no further chest pain. Melena- H&H trend have been stable. Continue IV Protonix. Status post EGD which showed findings as below. discussed with GI and recommended continue PPI twice daily. The esophagus was normal. Localized moderate inflammation characterized by erosions and erythema was found in the entire examined stomach. Biopsies were taken with a cold forceps for histology. Many non-bleeding cratered gastric ulcers with no stigmata of bleeding were found in the gastric antrum. The largest lesion was 8 mm in largest dimension. The examined duodenum was normal. Hypertension- BP stable. Will resume lisinopril and torsemide as indicated. Abnormal CTA abdomen as noted above- noted arterial stenosis for which will continue aspirin, statin and recommend outpatient vascular evaluation. Noted left renal lesion for which recommend outpatient renal ultrasound. DVT ppx- SCD Disposition- Pending medical stability Time spent- approximately 50 minutes Admission and Anticipated Discharge Date Admission Date: October 13, 2023 Subjective Patient was seen examined at bedside. still with diarrhea and lower abdominal pain. States he had food last night and he threw up. Currently little nauseous but no vomiting. No fever, chills, chest pain, shortness of breath Review of Systems Review of Systems: All systems reviewed & are unremarkable except as noted in Subjective Physical Exam Physical Exam: General: Lying comfortably in bed, not in distress, on room air HEENT: EOMI, AIDE, MMM Chest: Clear breath sounds bilaterally, no wheezes or crackles CVS: Regular rate and rhythm, normal heart sounds, no murmur Abdomen: Soft, mild left lower quadrant tenderness not distended, normal bowel sounds Neuro: Awake, alert, oriented, conversing well, non focal Extremities: left BKA Results & Data Results & Data Vital Signs (Past 12 Hours) Vital Signs Temp Pulse Pulse Resp BP Pulse Ox O2 Del Method 10/15/23 15:39 37.0 C 47 L 18 122/61 95 Room Air 10/15/23 15:27 56 L 10/15/23 13:27 52 L 10/15/23 11:35 36.5 C 43 L 18 116/60 95 Room Air 10/15/23 09:10 60 107/80 10/15/23 08:00 Room Air 10/15/23 07:49 36.9 C 51 L 18 115/65 92 Room Air Laboratory Results Short CBC 10/14/23 10/15/23 10/15/23 Range/Units 22:55 02:09 08:16 WBC 5.85 (4.8-10.8) K/ul Hgb 9.5 L 9.5 L 9.5 L (14.0-18.0) g/dl Hct 28.6 L 28.2 L 28.9 L (42.0-52.0) % Plt Count 169 (130-400) K/uL BMP 10/15/23 02:09 Sodium 141 Potassium 3.8 Chloride 115 H Carbon Dioxide 23 BUN 11 Creatinine 0.89 Glucose 102 H Calcium 8.3 L Urine 10/15/23 Range/Units Unknown Urine Color Yellow Urine Appearance Clear (Clear) Urine pH 6.0 (4.5-7.5) Ur Specific [place] 1.012 (1.000-1.030) Urine Protein Negative (Negative) Urine Glucose (UA) Negative (Negative)
[2023-10-15] MEDS: DIPHENOXYLATE/ATROPINE 2.5/0.025MG TAB PO PRN (20:53)
[2023-10-16 06:55] LABS: Hematocrit (blood only) 30.6 % (42.0-52.0); Hemoglobin 10.2 g/dl (14.0-18.0); Mean Corpuscular Hemoglobin 29.2 pg (25.0-34.0); Mean Corpuscular Hgb Conc 33.3 g/dL (32.0-36.0); Mean Corpuscular Volume 87.7 fL (80.0-100.0); Mean Platelet Volume 10.8 fL (9.4-12.4); Platelet Count 198 K/uL (130-400); RDW Coefficient of Variation 13.2 % (11.5-14.5); RDW Standard Deviation 41.4 fL (36.4-46.3); Red Blood Count 3.49 M/uL (4.70-6.10); White Blood Count 6.18 K/ul (4.8-10.8)
[2023-10-16 07:39] LABS: BUN Creatinine Ratio 12.2 (10-20); Calcium 8.4 mg/dl (8.6-10.3); Creatinine Clr Calc Pharmacy 99.7 ml/min; Est GFR (Non-African American) 93.2 ml/min; Magnesium 1.6 mg/dl (1.7-2.4); Phosphorus 2.5 mg/dl (2.5-4.9); Potassium 3.7 mmol/L (3.5-5.1)
[2023-10-16] MEDS: BUPRENORPHINE/NALOXONE 8/2 MG TAB SL SCH (08:53)
[2023-10-16] MEDS: lisinopril 10 MG TAB PO SCH (09:04)
[2023-10-16] MEDS: ACETAMINOPHEN 1,000 MG/100 ML VIAL IV STA (13:44)
--- NOTE | 2023-10-16 14:12 | Hospitalist Progress Note ---
Date of Service October 16, 2023 Assessment & Plan (1) Chest pain: (2) H/O heart artery stent: (3) Diarrhea: (4) Colitis: (5) Bradycardia: Plan 58-year-old male presenting from [facility] with [facility] pain along with superimposed 8 days of diarrhea, malaise with low-grade fever and chills. CT abdomen/pelvis 10/14 1. Possible mild colitis and associated gastroenteritis. 2. Mild bibasilar atelectasis or infiltrate, nonspecific, possible pneumonia. 3. Distended urinary bladder may be physiologic, cannot rule out mild urinary retention. CT abdomen pelvis 10/11 1. No abdominal aortic dissection. Extensive aortoiliac atherosclerotic plaque. Severe multifocal stenoses within the bilateral common iliac arteries. In addition, severe stenoses within the left external iliac and common femoral arteries with a diminutive left superficial femoral artery. Mild dilatation of the right common iliac artery. 2. No acute process within the abdomen or pelvis. 3. No bowel obstruction. No bowel wall thickening. Normal appendix. 4. 8 mm left lower pole renal lesion. This probably reflects a cyst however measures above water attenuation. Nonemergent renal ultrasound is recommended to exclude the possibility of a small solid renal lesion. Diarrhea, LLQ pain- CT done 10/13 shows possible mild colitis and associated gastroenteritis. GI panel 10/11 negative. Patient continues to have diarrhea despite Imodium and fibers. Imodium changed to Lomotil. Started on Cipro/Flagyl 10/14 for suspected colitis but does not seem to be helping him. Patient clinically does not have pneumonia as suggested in CT. Since he continues to have persistent diarrhea and pain despite multiple imaging and empiric treatment, will consult GI for evaluation for possible colonoscopy. Sinus Bradycardia- Resolved after holding home beta-blockers. Will continue to hold metoprolol and monitor on telemetry. Will consider resuming at low- dose if he becomes tachycardic. Chest pain, history of CAD with prior stents- ACS ruled out. Seen by cardiology. Recommendations noted. echo with normal to hyperdynamic LV systolic function and wall motion abnormality. no further chest pain. black stool ?melena- H&H trend have remained stable and he does not have any ongoing GI bleeding. Continue IV Protonix. Status post EGD which showed findings as below. Discussed with GI and recommended continue PPI twice daily. The esophagus was normal. Localized moderate inflammation characterized by erosions and erythema was found in the entire examined stomach. Biopsies were taken with a cold forceps for histology. Many non-bleeding cratered gastric ulcers with no stigmata of bleeding were found in the gastric antrum. The largest lesion was 8 mm in largest dimension. The examined duodenum was normal. Hypertension- BP Rebounding. lisinopril was resumed. Will continue to hold torsemide given ongoing diarrhea. Abnormal CTA abdomen as noted above- noted arterial stenosis for which will continue aspirin, statin and recommend outpatient vascular evaluation. Noted left renal lesion for which recommend outpatient renal ultrasound. Hypomagnesemia- repleted, recheck in a.m. DVT ppx- SCD. sc heparin Disposition- Pending medical stability Time spent- approximately 50 minutes Admission and Anticipated Discharge Date Admission Date: October 13, 2023 Subjective Patient was seen and examined at bedside. States he continues to have d iarrhea and left lower quadrant pain. States that whenever he is eating is coming out. No nausea or vomiting. No fever or chills. He feels like nothing is helping his diarrhea and pain. He is asking if he is going to have a colonoscopy. Review of Systems Review of Systems: All systems reviewed & are unremarkable except as noted in Subjective Physical Exam Physical Exam: General: Lying comfortably in bed, not in distress, on room air HEENT: EOMI, AIDE, MMM Chest: Clear breath sounds bilaterally, no wheezes or crackles CVS: Regular rate and rhythm, normal heart sounds, no murmur Abdomen: Soft, mild left lower quadrant tenderness not distended, normal bowel sounds Neuro: Awake, alert, oriented, conversing well, non focal Extremities: left BKA Results & Data Results & Data Vital Signs (Past 12 Hours) Vital Signs Temp Pulse Pulse Resp BP BP Pulse Ox 10/16/23 11:04 65 10/16/23 10:37 36.4 C L 57 L 17 157/75 H 95 10/16/23 08:00 10/16/23 07:41 36.6 C 59 L 18 164/74 H 94 10/16/23 03:54 36.7 C 58 L 16 147/69 H 97 O2 Del Method 10/16/23 11:04 10/16/23 10:37 Room Air 10/16/23 08:00 Room Air 10/16/23 07:41 Room Air 10/16/23 03:54 Room Air Laboratory Results Short CBC 10/16/23 Range/Units 06:20 WBC 6.18 (4.8-10.8) K/ul Hgb 10.2 L (14.0-18.0) g/dl Hct 30.6 L (42.0-52.0) % Plt Count 198 (130-400) K/uL BMP 10/16/23 06:20 Sodium 142 Potassium 3.7 Chloride 113 H Carbon Dioxide 24 BUN 11 Creatinine 0.90 Glucose 97 Calcium 8.4 L
[2023-10-16] MEDS: MAGNESIUM SULFATE / D5W 1 GM/100 ML BAG IV ONE (14:24)
[2023-10-16] MEDS: KETOROLAC TROMETHAMINE 15 MG/ML VIAL IV PRN (18:07)
[2023-10-16] MEDS: HEPARIN SOD 5,000 UNIT/0.5 ML VIAL SQ SCH (21:52)
[2023-10-16] MEDS: ACETAMINOPHEN 500 MG TAB PO STA (22:03)
[2023-10-17 07:53] LABS: Hematocrit (blood only) 31.1 % (42.0-52.0); Hemoglobin 10.2 g/dl (14.0-18.0); Mean Corpuscular Hemoglobin 28.9 pg (25.0-34.0); Mean Corpuscular Hgb Conc 32.8 g/dL (32.0-36.0); Mean Corpuscular Volume 88.1 fL (80.0-100.0); Mean Platelet Volume 10.7 fL (9.4-12.4); Platelet Count 216 K/uL (130-400); RDW Coefficient of Variation 13.1 % (11.5-14.5); RDW Standard Deviation 41.2 fL (36.4-46.3); Red Blood Count 3.53 M/uL (4.70-6.10)
[2023-10-17 07:59] LABS: BUN Creatinine Ratio 11.9 (10-20); Calcium 8.3 mg/dl (8.6-10.3); Creatinine Clr Calc Pharmacy 89.3 ml/min; Est GFR (African American) 93.9 ml/min
[2023-10-17] MEDS ORDERED: lisinopril 10 MG TAB PO SCH (09:00)
[2023-10-17] MEDS ORDERED: lisinopril 20 MG TAB PO SCH (09:00)
--- NOTE | 2023-10-17 14:00 | Hospitalist Progress Note ---
Date of Service October 17, 2023 Assessment & Plan (1) Chest pain: (2) H/O heart artery stent: (3) Diarrhea: (4) Colitis: (5) Bradycardia: Plan 58-year-old male presenting from [facility] with chest pain along with superimposed 8 days of diarrhea, malaise with low-grade fever and chills. CT abdomen/pelvis 10/14 1. Possible mild colitis and associated gastroenteritis. 2. Mild bibasilar atelectasis or infiltrate, nonspecific, possible pneumonia. 3. Distended urinary bladder may be physiologic, cannot rule out mild urinary retention. CT abdomen pelvis 10/11 1. No abdominal aortic dissection. Extensive aortoiliac atherosclerotic plaque. Severe multifocal stenoses within the bilateral common iliac arteries. In addition, severe stenoses within the left external iliac and common femoral arteries with a diminutive left superficial femoral artery. Mild dilatation of the right common iliac artery. 2. No acute process within the abdomen or pelvis. 3. No bowel obstruction. No bowel wall thickening. Normal appendix. 4. 8 mm left lower pole renal lesion. This probably reflects a cyst however measures above water attenuation. Nonemergent renal ultrasound is recommended to exclude the possibility of a small solid renal lesion. Diarrhea, LLQ pain- now improving. CT done 10/13 shows possible mild colitis and associated gastroenteritis. GI panel 10/11 negative. Continued to have diarrhea despite Imodium and fibers and Imodium was changed to Lomotil. Started on Cipro/Flagyl 10/14 for suspected colitis. Since he continues to have persistent diarrhea and pain despite multiple imaging and empiric treatment, GI was consulted 10/15 for evaluation for possible colonoscopy but they have not evaluated him yet. I have tigertexted GI today. Sinus Bradycardia- Resolved after holding home beta-blockers. Will continue to hold metoprolol and monitor on telemetry. Will consider resuming at low- dose if he becomes tachycardic. Chest pain, history of CAD with prior stents- ACS ruled out. Seen by cardiology. Recommendations noted. echo with normal to hyperdynamic LV systolic function and wall motion abnormality. no further chest pain. black stool ?melena- Improved, now brown per patient. H&H trend have remained stable and he does not have any ongoing GI bleeding. Continue IV Protonix. Status post EGD which showed findings as below. Discussed with GI and recommended continue PPI twice daily. The esophagus was normal. Localized moderate inflammation characterized by erosions and erythema was found in the entire examined stomach. Biopsies were taken with a cold forceps for histology. Many non-bleeding cratered gastric ulcers with no stigmata of bleeding were found in the gastric antrum. The largest lesion was 8 mm in largest dimension. The examined duodenum was normal. Hypertension- BP labile. Will hold lisinopril for now. Will continue to hold torsemide given ongoing diarrhea. Abnormal CTA abdomen as noted above- noted arterial stenosis for which will continue aspirin, statin and recommend outpatient vascular evaluation. Noted left renal lesion for which recommend outpatient renal ultrasound. Hypomagnesemia- repleted. DVT ppx- SCD. sc heparin Disposition- Pending medical stability. GI reeval pending. Time spent- approximately 35 minutes Admission and Anticipated Discharge Date Admission Date: October 13, 2023 Subjective Patient was seen and examined at bedside. He feels better today. Diarrhea has slowed down and pain is improved. He has not been seen by GI yet. Tolerating diet without N/V. No fever or chills. Review of Systems Review of Systems: All systems reviewed & are unremarkable except as noted in Subjective Physical Exam Physical Exam: General: Lying comfortably in bed, not in distress, on room air HEENT: EOMI, AIDE, MMM Chest: Clear breath sounds bilaterally, no wheezes or crackles CVS: Regular rate and rhythm, normal heart sounds, no murmur Abdomen: Soft, mild left lower quadrant tenderness not distended, normal bowel sounds Neuro: Awake, alert, oriented, conversing well, non focal Extremities: left BKA Results & Data Results & Data Vital Signs (Past 12 Hours) Vital Signs Temp Pulse Resp BP BP Pulse Ox O2 Del Method 10/17/23 11:34 37.1 C 61 18 136/67 95 Room Air 10/17/23 08:08 36.9 C 64 18 138/67 92 Room Air 10/17/23 03:30 36.6 C 52 L 18 107/69 93 Room Air Laboratory Results Short CBC 10/17/23 Range/Units 07:22 WBC 6.40 (4.8-10.8) K/ul Hgb 10.2 L (14.0-18.0) g/dl Hct 31.1 L (42.0-52.0) % Plt Count 216 (130-400) K/uL BMP 10/17/23 07:22 Sodium 143 Potassium 4.0 Chloride 113 H Carbon Dioxide 25 BUN 12 Creatinine 1.01 Glucose 99 Calcium 8.3 L
--- NOTE | 2023-10-17 14:49 | Gastroenterology Progress Note ---
Date of Service October 17, 2023 Assessment & Plan (1) Colitis: Plan: -Clear liquid diet today -NPO after midnight -Colonoscopy on 10/18/23 Admission and Anticipated Discharge Date Admission Date: October 13, 2023 Supervising Physician Co-Signing Physician Notes Agree with IVA Restrepo Interviewed and examined patient and agree with above Abd: Soft, NT, ND Continue current therapy and supportive care Proceed with colonoscopy in AM Subjective Patient is a 73 yo male with ongoing diarrhea & CT findings of colitis. Patient denies new complaints. Stool PCR negative. C diff negative. Review of Systems Gastrointestinal: + diarrhea/loose stools Physical Exam Constitutional: well developed Respiratory: normal respiratory effort Psychiatric: Orientation: alert and oriented x 3 Results & Data Results & Data Vital Signs (Past 12 Hours) Vital Signs Temp Pulse Resp BP BP Pulse Ox O2 Del Method 10/17/23 11:34 37.1 C 61 18 136/67 95 Room Air 10/17/23 08:08 36.9 C 64 18 138/67 92 Room Air 10/17/23 03:30 36.6 C 52 L 18 107/69 93 Room Air PG Care Time/CCT Total # of Minutes Spent Total Time Spent with Patient: Total time spent is greater than 50% in coordination of care (as documented) at patient's floor/unit and/or counseling patient: Coding Level of Care Code 15050 SUB INP/OBS CARE 3/50MIN Diagnoses Colitis K52.9
[2023-10-17] MEDS: LAVAGE SOLUTION 4000ML PO SCH (18:13)
[2023-10-17] MEDS: ACETAMINOPHEN 1,000 MG/100 ML VIAL IV STA (21:11)
[2023-10-17] MEDS: hydrALAZINE HCL 20 MG/ML VIAL IV STA (21:11)
--- NOTE | 2023-10-18 06:05 | Electrocardiogram Report ---
Test Reason : Blood Pressure : / mmHG Vent. Rate : 041 BPM Atrial Rate : 041 BPM P-R Int : 194 ms QRS Dur : 094 ms QT Int : 490 ms P-R-T Axes : 038 022 034 degrees QTc Int : 404 ms Marked sinus bradycardia Inferior infarct (cited on or before 12-OCT-2023) Abnormal ECG When compared with ECG of 13-OCT-2023 05:45, No significant change was found Confirmed by Zhen Joy ([id number]) on 10/18/2023 6:05:28 AM Referred By: Stew WAN Confirmed By:Zhen Joy
--- NOTE | 2023-10-18 08:32 | Anesthesiology Consultation ---
Date of Service October 18, 2023 Assessment & Plan Chart Review Chart Review: Acceptable Risk for Surgery, Patient NOT seen in Pre Admission Testing and sugar controller initiated Consults Requested none ASA ASA3 Proposed Anesthesia Anesthesia Type: MAC Risk / Benefits Reviewed With: PT / POA / Parent / Guardian, Accepts Plan and Informed Consent Obtained History Surgery Operation Date: 10/14/23 17:00 Proposed Procedures p Esophagogastroduodenoscopy Dr Zeyad Dc Case, DO Operation Date: 10/18/23 17:25 Proposed Procedures p Colonoscopy Dr. Zeyad Dc Case, DO Height/Weight Height: 5 ft 8 in Weight: 93.9 kg Allergies Allergy/AdvReac Type Severity Reaction Status Date / Time animal dander Allergy Unknown Unknown Verified 10/18/23 08:14 codeine Allergy Unknown Unknown Verified 10/18/23 08:14 Medications Home Medications Medication Instructions Recorded Confirmed Last Taken albuterol sulfate 90 mcg/actuation 2 puff inhalation QID PRN 10/12/23 10/12/23 Unknown aerosol inhaler SOB/WHEEZING aspirin 81 mg tablet,delayed 81 mg PO DAILY 10/12/23 10/12/23 Unknown release atorvastatin 80 mg tablet 80 mg PO HS 10/12/23 10/12/23 Unknown buprenorphine 8 mg-naloxone 2 mg 1 tab sublingual UD 10/12/23 10/12/23 Unknown sublingual tablet cholecalciferol (vitamin D3) 25 50 mcg PO DAILY 10/12/23 10/12/23 Unknown mcg (1,000 unit) tablet (Vitamin D3) diclofenac potassium 50 mg tablet 50 mg PO BID PRN Unknown 10/12/23 10/12/23 Unknown duloxetine 30 mg capsule,delayed 30 mg PO HS 10/12/23 10/12/23 Unknown release duloxetine 60 mg capsule,delayed 60 mg PO HS 10/12/23 10/12/23 Unknown release isosorbide mononitrate 30 mg 30 mg PO DAILY 10/12/23 10/12/23 Unknown tablet,extended release 24 hr lamotrigine 25 mg tablet 75 mg PO BID 10/12/23 10/12/23 Unknown lisinopril 20 mg tablet 20 mg PO DAILY 10/12/23 10/12/23 Unknown loperamide 2 mg tablet (Diamode) 4 mg PO DAILY 10/12/23 10/12/23 Unknown metoprolol tartrate 25 mg tablet 25 mg PO BID 10/12/23 10/12/23 Unknown mirtazapine 30 mg tablet 30 mg PO HS 10/12/23 10/12/23 Unknown torsemide 20 mg tablet 20 mg PO BID 10/12/23 10/12/23 Unknown Active Medications Generic Name Dose Route Start Last Admin Trade Name Freq PRN Reason Stop Dose Admin Acetaminophen 650 mg 10/12/23 15:31 10/16/23 12:05 Acetaminophen 325 Mg Tab PO 11/11/23 15:30 650 mg Q4H PRN Administration Moderate Pain (Scale 4, 5, 6) Aspirin 81 mg 10/13/23 09:00 10/13/23 08:48 Aspirin 81 Mg Ectab PO 11/12/23 08:59 81 mg DAILY LATHA Administration Atorvastatin Calcium 80 mg 10/12/23 21:00 10/17/23 21:02 Atorvastatin 40 Mg Tab PO 11/11/23 20:59 80 mg HS LATHA Administration Buprenorphine/Naloxone 1 tab 10/16/23 09:00 10/17/23 08:41 Buprenorphine/Naloxone 8/2 Mg Tab SL 11/15/23 08:59 1 tab DAILY LATHA Administration Ciprofloxacin 500 mg 10/15/23 11:00 10/17/23 21:03 Ciprofloxacin 500 Mg Tab PO 10/25/23 10:59 500 mg BID LATHA Administration Protocol Diphenoxylate HCl/Atropine 1 tab 10/15/23 10:29 10/16/23 06:07 Diphenoxylate/Atropine 2.5/0.025mg Tab PO 11/14/23 10:28 1 tab QID PRN Administration Diarrhea Duloxetine HCl 30 mg 10/12/23 21:00 10/17/23 21:04 Duloxetine Hcl 30 Mg Cap PO 11/11/23 20:59 30 mg HS LATHA Administration Duloxetine HCl 60 mg 10/12/23 21:00 10/17/23 21:03 Duloxetine Hcl 60 Mg Cap PO 11/11/23 20:59 60 mg HS LATHA Administration Heparin Sodium (Porcine) 5,000 units 10/16/23 21:00 10/17/23 21:05 Heparin Sod 5,000 Unit/0.5 Ml Vial SQ 11/15/23 20:59 5,000 units Q12 LATHA Administration Pantoprazole Sodium 40 mg/ 10 mls @ 5 mls/min 10/14/23 21:00 10/17/23 21:02 Syringe IV 11/13/23 20:59 5 mls/min BID LATHA Administration Isosorbide Mononitrate 30 mg 10/12/23 14:30 10/17/23 08:37 Isosorbide Stewart Extended Rel 30 Mg Tabcr PO 11/11/23 14:29 30 mg DAILY LATHA Administration Lamotrigine 75 mg 10/12/23 21:00 10/17/23 21:03 Lamotrigine 25 Mg Tab PO 11/11/23 20:59 75 mg BID LATHA Administration Protocol Metoprolol Tartrate 25 mg 10/12/23 14:30 10/15/23 09:13 Metoprolol Tartrate 25 Mg Tab PO 11/11/23 14:29 25 mg BID LATHA Administration Metronidazole 500 mg 10/15/23 14:00 10/17/23 21:04 Metronidazole 500 Mg Tab PO 10/25/23 13:59 500 mg TID LATHA Administration Protocol Mirtazapine 30 mg 10/12/23 21:00 10/17/23 23:49 Mirtazapine Tab 15 Mg Tab PO 11/11/23 20:59 Not Given HS LATHA Polyethylene Glycol/Electrolytes 8 dose 10/17/23 18:00 10/18/23 03:04 Lavage Solution 4000ml PO 11/16/23 17:59 8 dose 0300,1800 LATHA Administration Psyllium Hydrophilic Mucilloid 4 gm 10/14/23 14:30 10/17/23 08:37 Psyllium Or Guar Gum Fiber 4gm Packet PO 11/13/23 14:29 4 gm QAM LATHA Administration Vitamin D 50 mcg 10/13/23 09:00 10/17/23 08:37 Cholecalciferol 25 Mcg (1000 Units) Tab PO 11/12/23 08:59 50 mcg DAILY LATHA Administration NPO Date Last Intake of Fluids: 10/18/23 Time Last Intake of Fluids: 05:00 Date Last Intake of Solids: 10/17/23 Time Last Intake of Solids: 07:00 Past Medical History Medical History History of tobacco use History of epigastric pain History of melena History of coronary artery disease C. difficile diarrhea Exercise / Class Metabolic Activity III < 4 Walking/Shop/Light housework (wheelchair) Past Surgical History Surgical History History of hip surgery R femur fx s/p IM Nail History of left below knee amputation H/O heart artery stent Past Anesthesia History No Hx of Anesthesia Complications and No Family Hx of Anesthesia Complications History of PONV No Hx of PONV and No Hx of Motion Sickness Social History Smoking Status: Former smoker Do You Dip or Chew Tobacco: No Hx Alcohol Use: No Hx Substance Use: No substance use type: does not use Physical Exam Vital Signs Last Vital Signs Temp 36.7 C 10/18/23 08:15 Pulse 88 10/18/23 08:15 Resp 18 10/18/23 08:15 BP 173/102 H 10/18/23 08:15 Pulse Ox 93 10/18/23 08:15 O2 Del Method Room Air 10/18/23 08:15 O2 Flow Rate 0 10/12/23 08:05 Constitutional + obese; no acute distress ENMT Mouth: + edentulous Thyromental Distance: > or= 3.5 Finger Breadths Mallampati Class: II Neck normal visual inspection and trachea midline; neck extension not limited Respiratory normal respiratory effort; no respiratory distress Auscultation: lungs clear to auscultation bilaterally; no crackles, no rhonchi and no wheezes Cardiovascular Rate/Rhythm: regular rate and regular rhythm Heart Sounds: no gallop, no murmur and no cardiac rub Musculoskeletal Head/Neck/Chest: full ROM of neck Neurologic moves all extremities and awake Psychiatric Orientation: alert and oriented x 3 Testing Laboratory Results 10/17/23 07:22 10/17/23 07:22 Hemoglobin A1c 6.1 % (4.5-5.6) H 10/13/23 08:04 Urine Color Yellow 10/15/23 Unknown Urine Appearance Clear (Clear) 10/15/23 Unknown Urine pH 6.0 (4.5-7.5) 10/15/23 Unknown Ur Specific [place] 1.012 (1.000-1.030) 10/15/23 Unknown Urine Protein Negative (Negative) 10/15/23 Unknown Urine Glucose (UA) Negative (Negative) 10/15/23 Unknown Urine Ketones Negative (Negative) 10/15/23 Unknown Urine Nitrite Negative (Negative) 10/15/23 Unknown Ur Leukocyte Esterase Negative (Negative) 10/15/23 Unknown Electrocardiogram Date: 10/13/23 Findings: + SB @ (57) and + 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
--- NOTE | 2023-10-18 08:40 | Communication Note ---
Date of Service: October 18, 2023 Prep went well overnight. No evidence of GI blood loss. He denies any fevers, chills, nausea, vomiting or diarrhea. Chest: CTA B/L -W/R/R CVS: RRR Abd: Soft, NT, ND, +BS Impression: 58 yo male with diarrhea and abnormal CT scan with evidence of colitis. Plan: Continue current therapy and supportive care Proceed with colonoscopy now
--- NOTE | 2023-10-18 09:24 | GI REPORT ---
Patient Name: Adan Ferrer Procedure Date: 10/18/2023 8:24 AM Date of : 1965 Admit Type: Inpatient Age: 58 Gender: Male Attending MD: Lamin Jeffers DO, Procedure: Colonoscopy Providers: Lamin Jeffers DO Referring MD: Quincy Thacker MD Indications: Chronic diarrhea, Abnormal CT of the GI tract Medicines: Monitored Anesthesia Care Complications: No immediate complications. Estimated Blood Loss: Estimated blood loss: none. Procedure: Pre-Anesthesia Assessment: - Prior to the procedure, a History and Physical was performed, and patient medications and allergies were reviewed. The patient's tolerance of previous anesthesia was also reviewed. The risks and benefits of the procedure and the sedation options and risks were discussed with the patient. All questions were answered, and informed consent was obtained. Prior Anticoagulants: The patient has taken no anticoagulant or antiplatelet agents. ASA Grade Assessment: III - A patient with severe systemic disease. After reviewing the risks and benefits, the patient was deemed in satisfactory condition to undergo the procedure. After I obtained informed consent, the scope was passed under direct vision. Throughout the procedure, the patient's blood pressure, pulse, and oxygen saturations were monitored continuously. The Colonoscope was introduced through the anus and advanced to the terminal ileum. The colonoscopy was performed without difficulty. The patient tolerated the procedure well. The quality of the bowel preparation was fair. The terminal ileum, the appendiceal orifice and the rectum were photographed. Findings: The perianal and digital rectal examinations were normal. Non-bleeding internal hemorrhoids were found during retroflexion. The hemorrhoids were small. Several random biopsies were obtained with cold forceps for histology in the entire colon. Fluid aspiration for bacterial cultures and Clostridium difficile was performed in the entire colon. Impression: - Preparation of the colon was fair. - Non-bleeding internal hemorrhoids. - Several random biopsies were obtained in the entire colon. - Fluid aspiration was performed. Recommendation: - Return patient to [facility] for ongoing care. - Advance diet as tolerated. - Continue present medications. - Await pathology results. Lamin Jeffers DO 10/18/2023 9:24:33 AM This report has been signed electronically. Note Initiated On: 10/18/2023 8:24 AM Number of Addenda: 0 I attest to the content of the Intraoperative Record and orders documented therein, exceptions below {[id number]}
[2023-10-18] MEDS: SODIUM CHLORIDE 0.9% 500 ML IV SCH (10:47)
[2023-10-18] MEDS: LIDOCAINE 2% 2 ML VIAL/AMP(20MG/ML) INFIL ONE (10:48)
[2023-10-18] MEDS: ONDANSETRON INJ 2 MG/ML 2 ML VIAL ONE (10:48)
[2023-10-18] MEDS: PROPOFOL IV EMULSION 10 MG/ML 20 ML VIAL IV ONE (10:48)
[2023-10-18] MEDS: MIDAZOLAM HCL 1 MG/ML 2ML VIAL ONE (10:48)
[2023-10-18] MEDS: ePHEDrine sulfate 50 MG/5 ML SYR ONE (10:50)
--- NOTE | 2023-10-18 11:51 | Anesthesiology Progress Note ---
Date of Service October 18, 2023 Anesthesia Post Procedure Vital Signs Vital Signs: Temp Pulse Resp BP BP Pulse Ox O2 Del Method 10/18/23 10:30 36.6 C 68 16 146/81 H 93 Room Air 10/18/23 09:45 85 18 134/72 94 Room Air 10/18/23 09:30 80 18 98/61 L 95 Room Air 10/18/23 09:15 36.7 C 87 17 116/65 98 Oxymask 10/18/23 08:15 36.7 C 88 18 173/102 H 93 Room Air 10/18/23 07:29 36.4 C L 75 18 168/76 H 97 Room Air 10/18/23 03:00 36.6 C 70 18 161/83 H 93 Room Air 10/17/23 23:10 37.5 C 61 18 184/85 H 172/82 H 99 Room Air 10/17/23 21:11 Room Air 10/17/23 19:58 36.6 C 61 18 203/92 H 91 Room Air 10/17/23 16:00 37.0 C 61 18 120/69 97 Room Air O2 Flow Rate 10/18/23 10:30 10/18/23 09:45 10/18/23 09:30 10/18/23 09:15 4 10/18/23 08:15 10/18/23 07:29 10/18/23 03:00 10/17/23 23:10 10/17/23 21:11 10/17/23 19:58 10/17/23 16:00 Pain Intensity Left Chest: Pain Intensity: 4 Left Lower Abdomen: Pain Intensity: 8 Transfer of Care Handoff Completed per policy Notes Mental Status: alert / awake / arousable and participated in evaluation Patient Amnestic to Procedure: Yes Nausea / Vomiting: adequately controlled Pain: adequately controlled Airway Patency, RR, SpO2: stable & adequate BP & HR: stable & adequate Hydration State: stable & adequate Anesthetic Complications: no major complications apparent
--- NOTE | 2023-10-18 15:20 | Hospitalist Progress Note ---
Date of Service October 18, 2023 Assessment & Plan (1) Chest pain: (2) H/O heart artery stent: (3) Diarrhea: (4) Colitis: (5) Bradycardia: Plan 58-year-old male presenting from [facility] with chest pain along with superimposed 8 days of diarrhea, malaise with low-grade fever and chills. CT abdomen/pelvis 10/14 1. Possible mild colitis and associated gastroenteritis. 2. Mild bibasilar atelectasis or infiltrate, nonspecific, possible pneumonia. 3. Distended urinary bladder may be physiologic, cannot rule out mild urinary retention. CT abdomen pelvis 10/11 1. No abdominal aortic dissection. Extensive aortoiliac atherosclerotic plaque. Severe multifocal stenoses within the bilateral common iliac arteries. In addition, severe stenoses within the left external iliac and common femoral arteries with a diminutive left superficial femoral artery. Mild dilatation of the right common iliac artery. 2. No acute process within the abdomen or pelvis. 3. No bowel obstruction. No bowel wall thickening. Normal appendix. 4. 8 mm left lower pole renal lesion. This probably reflects a cyst however measures above water attenuation. Nonemergent renal ultrasound is recommended to exclude the possibility of a small solid renal lesion. Diarrhea, LLQ pain- continues with the same despite multiple trials of meds. - CT done 10/13 shows possible mild colitis and associated gastroenteritis. GI panel 10/11 negative. - Continued to have diarrhea despite Imodium and fibers and Imodium was changed to Lomotil. Started on Cipro/Flagyl 10/14 for suspected colitis. - Reevaluated by GI and s/p colonoscopy today which shows Non-bleeding internal hemorrhoids. Several random biopsies were obtained in the entire colon. Fluid aspiration was performed and sent for cultures. Sinus Bradycardia- Resolved after holding home beta-blockers. Will continue to hold metoprolol and monitor on telemetry. Will consider resuming at low- dose if he becomes tachycardic. Chest pain, history of CAD with prior stents- ACS ruled out. Seen by cardiology. Recommendations noted. echo with normal to hyperdynamic LV systolic function and wall motion abnormality. no further chest pain. black stool ?melena- resolved. H&H trend have remained stable and he does not have any ongoing GI bleeding. Continue IV Protonix. Status post EGD which showed findings as below. Discussed with GI and recommended continue PPI twice daily. The esophagus was normal. Localized moderate inflammation characterized by erosions and erythema was found in the entire examined stomach. Biopsies were taken with a cold forceps for histology. Many non-bleeding cratered gastric ulcers with no stigmata of bleeding were found in the gastric antrum. The largest lesion was 8 mm in largest dimension. The examined duodenum was normal. Hypertension- BP labile. Will hold lisinopril for now. Will continue to hold torsemide given ongoing diarrhea. Abnormal CTA abdomen as noted above- noted arterial stenosis for which will continue aspirin, statin and recommend outpatient vascular evaluation. Noted left renal lesion for which recommend outpatient renal ultrasound. Hypomagnesemia- repleted. DVT ppx- SCD. sc heparin Disposition- D/c back to [facility] when stable Time spent- approximately 35 minutes Admission and Anticipated Discharge Date Admission Date: October 13, 2023 Subjective Patient was seen and examined at bedside. States the abdominal pain was severe last night and toradol did not help. No N/V/fever chills. Still with diarrhea. No blood in bowel prep. Discussed about colonoscopy results. Review of Systems Review of Systems: All systems reviewed & are unremarkable except as noted in Subjective Physical Exam Physical Exam: General: Lying comfortably in bed, not in distress, on room air HEENT: EOMI, AIDE, MMM Chest: Clear breath sounds bilaterally, no wheezes or crackles CVS: Regular rate and rhythm, normal heart sounds, no murmur Abdomen: Soft, left lower quadrant tenderness not distended, normal bowel sounds Neuro: Awake, alert, oriented, conversing well, non focal Extremities: left BKA Results & Data Results & Data Vital Signs (Past 12 Hours) Vital Signs Temp Pulse Resp BP Pulse Ox O2 Del Method O2 Flow Rate 10/18/23 10:30 36.6 C 68 16 146/81 H 93 Room Air 10/18/23 09:45 85 18 134/72 94 Room Air 10/18/23 09:30 80 18 98/61 L 95 Room Air 10/18/23 09:15 36.7 C 87 17 116/65 98 Oxymask 4 10/18/23 08:15 36.7 C 88 18 173/102 H 93 Room Air 10/18/23 07:29 36.4 C L 75 18 168/76 H 97 Room Air
[2023-10-18] MEDS: oxyCODONE HCL IR 5 MG TAB (IMMEDIATE RELEASE) PO PRN (15:58)
[2023-10-18] MEDS: KETOROLAC TROMETHAMINE 15 MG/ML VIAL IV PRN (20:35)
[2023-10-19 08:20] LABS: Hematocrit (blood only) 28.7 % (42.0-52.0); Hemoglobin 9.5 g/dl (14.0-18.0); Mean Corpuscular Hemoglobin 29.1 pg (25.0-34.0); Mean Corpuscular Hgb Conc 33.1 g/dL (32.0-36.0); Mean Platelet Volume 10.6 fL (9.4-12.4); Nucleated RBC # (auto) 0.02 K/uL (0.00-0.12); Nucleated RBC % (auto) 0.3 %; Platelet Count 216 K/uL (130-400); RDW Coefficient of Variation 13.7 % (11.5-14.5); RDW Standard Deviation 43.6 fL (36.4-46.3); Red Blood Count 3.26 M/uL (4.70-6.10); White Blood Count 6.79 K/ul (4.8-10.8)
[2023-10-19 08:42] LABS: Calcium 8.2 mg/dl (8.6-10.3); Est GFR (African American) 108.5 ml/min; Est GFR (Non-African American) 93.6 ml/min; Magnesium 1.5 mg/dl (1.7-2.4); Phosphorus 3.5 mg/dl (2.5-4.9); Potassium 3.6 mmol/L (3.5-5.1)
--- NOTE | 2023-10-19 14:03 | Hospitalist Progress Note ---
Date of Service October 19, 2023 Assessment & Plan (1) Chest pain: (2) H/O heart artery stent: (3) Diarrhea: (4) Colitis: (5) Bradycardia: Plan 58-year-old male presenting from [facility] with chest pain along with superimposed 8 days of diarrhea, malaise with low-grade fever and chills. CT abdomen/pelvis 10/14 1. Possible mild colitis and associated gastroenteritis. 2. Mild bibasilar atelectasis or infiltrate, nonspecific, possible pneumonia. 3. Distended urinary bladder may be physiologic, cannot rule out mild urinary retention. CT abdomen pelvis 10/11 1. No abdominal aortic dissection. Extensive aortoiliac atherosclerotic plaque. Severe multifocal stenoses within the bilateral common iliac arteries. In addition, severe stenoses within the left external iliac and common femoral arteries with a diminutive left superficial femoral artery. Mild dilatation of the right common iliac artery. 2. No acute process within the abdomen or pelvis. 3. No bowel obstruction. No bowel wall thickening. Normal appendix. 4. 8 mm left lower pole renal lesion. This probably reflects a cyst however measures above water attenuation. Nonemergent renal ultrasound is recommended to exclude the possibility of a small solid renal lesion. Diarrhea, LLQ pain- - CT done 10/13 shows possible mild colitis and associated gastroenteritis. GI panel 10/11 negative. - Continued to have diarrhea despite Imodium and fibers and Imodium was changed to Lomotil. Started on Cipro/Flagyl 10/14 for suspected colitis. - Reevaluated by GI and s/p colonoscopy which shows Non-bleeding internal hemorrhoids. Several random biopsies were obtained in the entire colon. Fluid aspiration was performed and sent for cultures. -Diarrhea overall improved; continue current meds Sinus Bradycardia- Resolved after holding home beta-blockers. Will continue to hold metoprolol and monitor on telemetry. Chest pain, history of CAD with prior stents- ACS ruled out. Seen by cardiology. Recommendations noted. echo with normal to hyperdynamic LV systolic function and wall motion abnormality. no further chest pain. black stool ?melena- resolved. H&H trend have remained stable and he does not have any ongoing GI bleeding. Continue IV Protonix. Status post EGD which showed findings as below. Discussed with GI and recommended continue PPI twice daily. The esophagus was normal. Localized moderate inflammation characterized by erosions and erythema was found in the entire examined stomach. Biopsies were taken with a cold forceps for histology. Many non-bleeding cratered gastric ulcers with no stigmata of bleeding were found in the gastric antrum. The largest lesion was 8 mm in largest dimension. The examined duodenum was normal. Hypertension- BP labile. Will hold lisinopril for now. Will continue to hold torsemide given ongoing diarrhea. Abnormal CTA abdomen as noted above- noted arterial stenosis for which will continue aspirin, statin and recommend outpatient vascular evaluation. Noted left renal lesion for which recommend outpatient renal ultrasound. Hypomagnesemia- repleted. DVT ppx- SCD. sc heparin Disposition- D/c back to [facility] when stable Time spent- approximately 35 minutes Please note the above document was generated using voice recognition software. It may contain grammatical, syntax or spelling errors. Any formal questions or concerns about the content, text or information contained within the body of this dictation should be directly addressed to the provider for clarification Admission and Anticipated Discharge Date Admission Date: October 13, 2023 Subjective Patient seen and examined at bedside. He reports mild pain on lower abdomen and has occasional diarrhea. Reports that diarrhea has improved overall No significant events overnight Review of Systems Review of Systems: All systems reviewed & are unremarkable except as noted in Subjective Physical Exam Physical Exam: General: Lying comfortably in bed, not in distress, on room air HEENT: EOMI, AIDE, MMM Chest: Clear breath sounds bilaterally, no wheezes or crackles CVS: Regular rate and rhythm, normal heart sounds, no murmur Abdomen: Soft, left lower quadrant tenderness not distended, normal bowel sounds Neuro: Awake, alert, oriented, conversing well, non focal Extremities: left BKA Results & Data Results & Data Vital Signs (Past 12 Hours) Vital Signs Temp Pulse Pulse Resp BP Pulse Ox O2 Del Method 10/19/23 12:09 37.0 C 65 18 147/75 H 95 Room Air 10/19/23 10:11 57 L 10/19/23 07:54 36.5 C 64 18 126/63 96 Room Air 10/19/23 02:57 36.3 C L 52 L 18 107/59 L 93 Room Air
[2023-10-19] MEDS: SIMETHICONE 80 MG CHEW PO PRN (16:44)
[2023-10-19] MEDS: PANTOprazole 40 MG TAB PO SCH (20:33)
[2023-10-20 07:45] LABS: Basophils # (auto) 0.03 K/uL (0.00-0.20); Basophils % (auto) 0.4 %; Eosinophils # (auto) 0.26 K/uL (0.00-0.50); Eosinophils % (auto) 3.9 %; Hematocrit (blood only) 28.1 % (42.0-52.0); Hemoglobin 9.2 g/dl (14.0-18.0); Immature Granulocytes # (auto) 0.09 K/uL (0.01-0.20); Immature Granulocytes % (auto) 1.3 %; Lymphocytes # (auto) 2.19 K/uL (1.20-3.40); Lymphocytes % (auto) 32.7 %; Mean Corpuscular Hemoglobin 28.9 pg (25.0-34.0); Mean Corpuscular Hgb Conc 32.7 g/dL (32.0-36.0); Mean Corpuscular Volume 88.4 fL (80.0-100.0); Mean Platelet Volume 10.9 fL (9.4-12.4); Monocytes # (auto) 0.36 K/uL (0.11-0.59); Monocytes % (auto) 5.4 %; Neutrophils # (auto) 3.77 K/uL (1.40-6.50); Neutrophils % (auto) 56.3 %; Nucleated RBC # (auto) 0.02 K/uL (0.00-0.12); Nucleated RBC % (auto) 0.3 %; Platelet Count 203 K/uL (130-400); RDW Coefficient of Variation 13.9 % (11.5-14.5); RDW Standard Deviation 43.6 fL (36.4-46.3); Red Blood Count 3.18 M/uL (4.70-6.10)
[2023-10-20 07:59] LABS: BUN Creatinine Ratio 14.3 (10-20); Calcium 8.4 mg/dl (8.6-10.3); Creatinine Clr Calc Pharmacy 87.2 ml/min; Est GFR (African American) 89.6 ml/min; Est GFR (Non-African American) 77.3 ml/min; Potassium 4.1 mmol/L (3.5-5.1)
[2023-10-20] MEDS: lisinopril 20 MG TAB PO STA (11:49)
[2023-10-20] MEDS: MAGNESIUM HYDROXIDE SUSP 30 ML UDC PO ONE (11:53)
--- NOTE | 2023-10-20 13:47 | Discharge Summary ---
Date of Service October 20, 2023 Admission HPI Per Admitting Provider This is a 58-year-old male who is from [facility], recently transferred here about 1.5 months ago from the [facility] care home system. He reports having cardiac stent placed at that facility approximately 6 months ago with a accompanying pleural effusion and NSTEMI, where he was hospitalized for 3 weeks. He previously has followed with a Dr. Quintero with cardiology. Pt has not seen him in the past 6 months however. He states that within the past 8 days patient has had nausea and diarrhea, generalized weakness and states he has not been up out of bed more than to get into the pill line and try some food in the past 48 hours. Patient states that as soon as he eats it seems to run right through him. Admits to having history of C. difficile and states that the stool smells foul and reminds him of similar infection. He denies any recent antibiotic use. He admits to having some dizziness today and feels somewhat short of breath with minimal exertional activities. Pt also felt feverish overnight with sweats, denies chills. He was administered a full dose aspirin and dose of nitroglycerin in EMS on the way here, states that he had improvement of his chest pain for approximately 30 minutes. It has since returned. States that it is a constant sharp type pain is nonradiating. He is slightly dizzy with sitting up in bed for exam purposes. 1 year ago sustained a fall due to using crutches and having left BKA prosthesis off, fell causing right femur fracture requiring nailing and fixation. He also sustained a left trigger finger injury, left shoulder injury and left elbow injury. Patient was placed on Suboxone tablet after this surgical fixation, per his report was all that the facility had, he denies any previous history of drug use, IV drug abuse, illicit drug use. He has smoked marijuana in the past but has not in the past 3 years, previously had medical marijuana card. Previously smoked cigarettes one third of a pack for 20 years on and off, quit 3 years ago. He denies any alcohol use. Family history: Mom: Cervical cancer, Dad: Alcoholism, Brother: Alive, no known medical history Surgical history: Cardiac Stent x 1 in 2022, location unknown Left BKA amputation 1999 Right femur fixation 2019 Admission Exam Per Admitting Provider General: awake, alert, no apparent distress, generalized weakness Head: Normocephalic, atraumatic ENT: PERRL, EOMI, no pharyngeal exudate, mucous membranes slightly dry Chest: Clear to auscultation, on room air, no adventitious breath sounds Cardiac: Regular rate and rhythm, no murmur, no JVD, normal peripheral pulses, good capillary refill Abdominal: NABS x 4 quadrants, soft, nondistended, LLQ is tender to palpation, no rebound or guarding Extremities: Normal inspection, Left BKA, stump is intact and well healed, no peripheral edema or erythema, calfs nontender to palpation Psych: Normal mood and affect Neuro: AAO x 3, strength intact bilaterally and rated 5/5, no motor deficits, speech is clear, no peripheral sensory deficits Principal Diagnosis Chest pain, ACS rule out Upper GI bleed Colitis Discharge Exam General: Lying comfortably in bed, not in distress, on room air HEENT: EOMI, AIDE, MMM Chest: Clear breath sounds bilaterally, no wheezes or crackles CVS: Regular rate and rhythm, normal heart sounds, no murmur Abdomen: Soft, left lower quadrant tenderness not distended, normal bowel sounds Neuro: Awake, alert, oriented, conversing well, non focal Extremities: left BKA Discharge Data Allergies Allergy/AdvReac Type Severity Reaction Status Date / Time animal dander Allergy Unknown Unknown Verified 10/18/23 08:14 codeine Allergy Unknown Unknown Verified 10/18/23 08:14 Consultations 10/12/23 13:25 ED Decision to Admit Stat 10/12/23 14:46 Consult Cardiology Routine HIM [Consult Health Information Management] Stat 10/13/23 15:27 Consult Gastroenterology Routine 10/16/23 10:09 Consult Gastroenterology Routine Procedures Performed Operation Date: 10/18/23 17:25 Actual Procedures p Colonoscopy Biopsy Cytology - Lamin Dc Case, DO Ordered Studies 10/12/23 08:31 CT angio abdomen pelvis w con Stat CT angio chest dissec wo/w con Stat 10/14/23 22:37 CT Abd and Pelvis [CT abd pelvis IV con only] Stat Hospital Course (1) Chest pain: (2) H/O heart artery stent: (3) Diarrhea: (4) Colitis: (5) Bradycardia: Plan 58-year-old male presenting from care home with chest pain along with superimposed 8 days of diarrhea, malaise with low-grade fever and chills. Diarrhea, LLQ pain- - CT done 10/13 shows possible mild colitis and associated gastroenteritis. GI panel 10/11 negative. - Continued to have diarrhea despite Imodium and fibers and Imodium was changed to Lomotil. Started on Cipro/Flagyl 10/14 for suspected colitis. - Reevaluated by GI and s/p colonoscopy which shows Non-bleeding internal hemorrhoids. Several random biopsies were obtained in the entire colon. Fluid aspiration was performed and sent for cultures. At the time of the discharge, and diarrhea had resolved. Patient had no abdominal pain. Patient discharged on 3 more days of Cipro and Flagyl to complete antibiotic course Sinus Bradycardia- Resolved after holding home beta-blockers. metoprolol on hold at discharge. Chest pain, history of CAD with prior stents- ACS ruled out. Seen by cardiology. Recommendations noted. echo with normal to hyperdynamic LV systolic function and wall motion abnormality. no further chest pain. Melena- resolved. H&H trend have remained stable and he does not have any ongoing GI bleeding. Status post EGD which showed findings as below. Discussed with GI and recommended continue PPI twice daily. The esophagus was normal. Localized moderate inflammation characterized by erosions and erythema was found in the entire examined stomach. Biopsies were taken with a cold forceps for histology. Many non-bleeding cratered gastric ulcers with no stigmata of bleeding were found in the gastric antrum. The largest lesion was 8 mm in largest dimension. The examined duodenum was normal. Discharge on Protonix twice a day Discharge instruction provided to the provider at the [facility] on the day of the discharge. Agreeable with the plan Please note the above document was generated using voice recognition software. It may contain grammatical, syntax or spelling errors. Any formal questions or concerns about the content, text or information contained within the body of this dictation should be directly addressed to the provider for clarification Total Time Total Time Spent Total Time Spent (In Minutes): 35 Total Time Includes: Examination of the Patient, Discharge Planning, Medication Reconciliation, Communication With Other Providers and Other Discharge Plan Discharge Items Patient Disposition: Home - Self-Care Reason For Visit: CHEST PAIN Discharge Diagnosis: Colitis Chest pain, ACS rule out Activity: Resume your previous activity Non-emergency contact: Primary Care Provider Call non-emergency contact if: you have any medication questions and your symptoms worsen Follow-up/Referrals: Stew WAN [Primary Care Provider] - Diet: Regular Addtl Attending Provider Instructions: You were admitted to the hospital due to chest pain. Your evaluated by cardiology. Acute coronary syndrome was ruled out. Echocardiogram showed normal heart function. The research anthropologist recommended following changes to the medication regimen: 1) Stop metoprolol due to bradycardia 2) Lisinopril 10 mg; decrease from 20 mg 3) Torsemide 20 mg once a day; decrease from 20 mg twice a day You were also evaluated by GI with colonoscopy and endoscopy. Endoscopy revealed gastritis and nonbleeding gastric ulcer for which you are prescribed Protonix to be taken twice a day. You are also found to have colitis during the hospitalization; you are prescribed ciprofloxacin and Flagyl to be taken for 3 more days to complete the course. Pending Studies at Discharge: No Stand-Alone Forms: [facility], Smoking Cessation Medications and DC Order Prescriptions: New metronidazole 500 mg Tablet 500 mg PO TID 3 Days Qty: 9 0RF ciprofloxacin HCl 500 mg Tablet 500 mg PO BID 3 Days Qty: 6 0RF pantoprazole 40 mg Tablet,Delayed Release (Dr/Ec) 40 mg PO BID 60 Days Qty: 120 0RF Continued atorvastatin 80 mg Tablet 80 mg PO HS isosorbide mononitrate 30 mg Tablet Extended Release 24 Hr 30 mg PO DAILY loperamide [Diamode] 2 mg Tablet 4 mg PO DAILY Rx Instructions: Can take additional 2mg if diarrhea is still present aspirin 81 mg Tablet,Delayed Release (Dr/Ec) 81 mg PO DAILY lamotrigine 25 mg Tablet 75 mg PO BID mirtazapine 30 mg Tablet 30 mg PO HS diclofenac potassium 50 mg Tablet 50 mg PO BID PRN (Reason: Unknown) albuterol sulfate 90 mcg/actuation Hfa Aerosol Inhaler 2 puff INHALATION QID PRN (Reason: SOB/WHEEZING) buprenorphine-naloxone 8-2 mg Tablet, Sublingual 1 tab SUBLINGUAL UD Rx Instructions: As per med list "Place 1 tablet under the tongue at suboxone time duloxetine 30 mg Capsule,Delayed Release(Dr/Ec) 30 mg PO HS duloxetine 60 mg Capsule,Delayed Release(Dr/Ec) 60 mg PO HS cholecalciferol (vitamin D3) [Vitamin D3] 25 mcg (1,000 unit) Tablet 50 mcg PO DAILY lisinopril 20 mg Tablet 20 mg PO DAILY Qty: 0 0RF Changed torsemide 20 mg Tablet 20 mg PO DAILY Qty: 0 0RF Discontinued metoprolol tartrate 25 mg Tablet 25 mg PO BID Discharge Orders: Discharge Order (Routine); Ordered 10/20/23 Ordered By: Catalino Pacheco/Other Patient Handouts: Prediabetes, 5 Steps for Eating Healthier Admission Data Admit Date/Time: 10/13/23 16:46 Attending Provider: Catalino Donovan Admit Provider: Ryland Broderick Primary Care Provider: Stew WAN Other Providers: Ryland Broderick; Stanislav Sanches; Lamin Jeffers; Cecilia Solorzano Jr Other Interventions: Discharge Summary Assessment (RN) Last Done: 10/20/23 13:05
--- NOTE | 2023-10-24 11:10 | Coding Query ---
CODING QUERY To promote full compliance with coding requirements relating to patient care, provider participation is requested in all cases of parking enforcement manager uncertainty. Please assist us with the question(s) below: Clinical Indicatory: Admission Order: Chest Pain H&P: * Chief Complaint: Chest Pain * ...within the past 8 days patient has had nausea and diarrhea, generalized weakness and states he has not been up out of bed more than to get into the pill line and try some food in the past 48 hours. Patient states that as soon as he eats it seems to run right through him. * He admits to having some dizziness today and feels somewhat short of breath with minimal exertional activities. Pt also felt feverish overnight with sweats, denies chills. He was administered a full dose aspirin and dose of nitroglycerin in EMS on the way here, states that he had improvement of his chest pain for approximately 30 minutes. It has since returned. States that it is a constant sharp type pain is nonradiating. * Chest x-ray: Negative * Chest CTA: No acute abnormality and in particular evidence of acute aortic injury. * ECG: Reviewed two previous EKGs from this morning without specific indication of ischemia, will repeat one more time with chest pain. Cardiology Consult 10/13/2023: * No ischemic evolution on EKG * Mild elevation in troponin on second test * No further symptoms suggest ischemic heart disease with mild elevation in troponins possibly demand based. * Echocardiogram with normal to hyperdynamic LV systolic function and no wall motion abnormality * Blood pressure is low * Consider fluid resuscitation * Would continue to hold torsemide and lisinopril * Still with frequent diarrhea Discharge Summary: * (1) Chest pain (2) Diarrhea (4) Colitis * Chest pain, history of CAD with prior stents- ACS ruled out. Seen by cardiology. Recommendations noted. echo with normal to hyperdynamic LV systolic function and wall motion abnormality. no further chest pain. * Reason For Visit: CHEST PAIN * Discharge Diagnosis: Colitis, Chest pain, ACS rule out Coding Question(s): Based on the above clinical indicators, are you able to clarify the etiology of the chest pain as: * Demand ischemia * Noninfective gastroenteritis and colitis, unspecified * Other: (please specify) * Unable to determine. Physician's Response(s): Noninfective gastroenteritis and colitis, unspecified Thank you Faustina Garcia Principal Diagnosis: "that condition established after study, to be chiefly responsible for occasioning the admission of the patient to the hospital for care." Co-Existing Principal Diagnosis: "when two or more diagnoses equally meet the criteria for principal diagnosis as determined by the circumstances of admission, diagnostic work up, and/or therapy provided, and the Alphabetic Index, Tabular List, or another coding guideline does not provide sequencing direction, any one of the diagnoses may be sequenced first." "When the physician has documented what appears to be a current diagnosis in the body of the record, but has not included the diagnosis in the final diagnostic statement, the physician should be asked whether the diagnosis should be added." (Source Coding [facility] 2 QTR90. p3-4) YISSEL
== END 2023-10-20 14:25 | DRG 391 ==
LOC: ED 07:54 → EDINP 07:54 → SUATTDRO 13:33 → 2S 15:31 → SUATTDRO 10-13 16:46